=== PATIENT | female | born 1995 | race Caucasian/White ===

== ENCOUNTER 2016-12-26 20:56 | Emergency (ER) | payer OTHER ==
[~2016-12-26] VITALS: Ht 175.3 cm; Wt 110.0 kg
[~2016-12-26 20:56] MED LIST: CLC100 PO; HYDR-5688 PO; TRIA37.5 PO
[2016-12-26 20:58] VITALS: BP 130/82; PULSE 105; TEMP 36.9; O2SAT 98; Ht 175.3 cm; Wt 110.0 kg
[2016-12-26] MEDS ORDERED: PROCHLORPERAZINE 5 MG/ML 2 ML VIAL IM STA (21:12)
[2016-12-26] MEDS ORDERED: KETOROLAC TROMETHAMINE 60 MG/2 ML VIAL IM STA (21:12)
[2016-12-26] MEDS ORDERED: DEXAMETHASONE SOD INJ 10 MG/ML VIAL IM ONE (21:15)
--- NOTE | 2016-12-26 21:19 | EMERGENCY ROOM VISIT NOTE ---
History First contact with patient: 21:04 Chief Complaint: HEADACHE Stated Complaint: MIGRAINE X3 DAYS,NAUSEA,STIFF NECK History of Present Illness The patient is a 21 year old female who presents to the Emergency Room with complaints of a migraine headache for the past 3 days. The patient does have a history of chronic migraines, but reports that her migraine frequency has significantly dropped off over the past several years. She reports that her headaches are usually associated with menstruation, of which the patient reports that she is currently due. She describes her headache as a throbbing right temporal and retro-orbital discomfort with photophobia and phonophobia. Patient usually takes Motrin and extra strength Tylenol for her migraines, but was unable to control her migraine this time. She denies any recent head injury , fever, sinus congestion or other neurologic symptoms. This is typical for her migraine, and not the worse headache of her life. She rates her discomfort a 7 out of 10. Review of Systems 10 system review was performed and was negative except for pertinent positives and negatives as indicated in history of present illness Past Medical/Surgical History Medical Problems: (1) Adverse drug interaction (2) Dehydration (3) Headache (4) Hematuria (5) Hyperemesis (6) Migraine (7) Migraine (8) Migraine (9) Migraine headache (10) Migraine headache (11) Migraines (12) (13) Surgical Problems: (1) H/O wisdom tooth extraction (2) Family History Diabetes mellitus Heart disease Hypertension Kidney disease Seizures Social History Smoking Status: Never Smoker Alcohol Use: none Drug Use: none Marital Status: in relationship Housing Status: lives with family Occupation Status: student Current/Historical Medications Scheduled Docusate Sodium (Docusate Sodium), 100 MG PO BID Triamterene/Hctz (Dyazide 37.5MG/25MG), 1 TAB PO UD Scheduled PRN Hydrocodone/Acetaminophen 5MG/325MG ([place] 5MG/325MG), 1-2 TAB PO Q6H PRN for Pain Allergies Coded Allergies: Codeine (Unverified Adverse Reaction, Intermediate, vomiting, 12/26/16) during - has tolerated vicodin well Physical Exam Vital Signs Date Time Temp Pulse Resp B/P Pulse Ox O2 Delivery O2 Flow Rate FiO2 12/26/16 20:58 36.9 105 18 130/82 98 Room Air Physical Exam CONSTITUTIONAL: Healthy and well nourished. Alert and oriented X 3 with positive affect. HEENT: Normocephalic, atraumatic. Pupils equal, round and reactive. Patient is photophobic, precluding funduscopic exam. NECK: Full active range of motion without discomfort. No nuchal rigidity, JVD or carotid bruits. RESPIRATORY: Clear to auscultation bilaterally with no wheezing, crackles, rhonchi or stridor. CARDIOVASCULAR: Regular rate and rhythm with no murmurs, rubs or gallops. MUSCULOSKELETAL: Full range of motion of all joints without discomfort. INTEGUMENTARY: No rash or other significant dermatologic conditions noted. NEUROLOGIC: Cranial nerves II-XII grossly intact. No focal neurologic deficits noted. Normal finger to nose test. Negative pronator drift. No ataxia with gait. Medical Decision & Procedures ED Course Patient history and physical exam were performed. Nurse's notes were reviewed. Vital signs were reviewed and normal. I did review prior medical records, showing that the patient was last here in June 2015, at which time I evaluated the patient. The patient received IM Toradol, Compazine and Decadron with complete resolution of her headache. The patient requested similar treatment and immediate discharge home as her ride is currently waiting for her. She was therefore administered Toradol 60 mg, Compazine 10 mg and Decadron 10 mg IM. She was instructed to rest and remain well-hydrated. Follow -up with her family doctor as needed for further migraine management. Return to the emergency Department for uncontrollable pain or other concerning neurologic symptoms. The patient was happy with plan of care, voiced understanding of all discharge instructions, and rated her discomfort a 7 out of 10 at the time of discharge. Medical Decision Patient presents to the emergency department with complaint of a migraine headache that is similar to all prior migraines. It is not the worse headache of her life. Given her history and physical exam findings, I do not feel that further laboratory or imaging studies are warranted. I do not suspect meningitis, TIA/CVA, thromboembolic event, abscess, intracranial bleed or carbon monoxide poisoning. Impression Primary Impression: Migraine Departure Information Dispostion Home / Self-Care Referrals No Doctor, Assigned (PCP) Forms HOME CARE DOCUMENTATION FORM, IMPORTANT VISIT INFORMATION Patient Instructions My [facility] Not [facility] Additional Instructions Rest and remain well-hydrated. Follow-up with your family doctor as needed for further migraine management. Return to the emergency department for worsening symptoms. Problem Qualifiers Primary Impression: Migraine Migraine type: unspecified Status migrainosus presence: without status migrainosus Intractability: not intractable Qualified Codes: G43.909 - Migraine, unspecified, not intractable, without status migrainosus
[2016-12-26] MEDS ORDERED: PEDICHW53 PO (21:28)
== END 2016-12-26 21:46 | disposition home or self-care (01) ==
LOC: C.EDB 20:57 → C.EDD 21:46
DX: G43.909 Migraine, unspecified, not intractable, without status migrainosus (principal)

== ENCOUNTER 2017-09-03 14:25 | Emergency (ER) | payer OTHER ==
[~2017-09-03] VITALS: Ht 175.3 cm; Wt 108.0 kg
[~2017-09-03 14:25] MED LIST changes: -CLC100 PO; -HYDR-5688 PO; +PEDICHW53 PO; -TRIA37.5 PO
[2017-09-03 14:30] VITALS: TEMP 36.8; Ht 175.3 cm; Wt 108.0 kg
--- NOTE | 2017-09-03 14:59 | EMERGENCY ROOM VISIT NOTE ---
History Report prepared by Edyta: Lanie Santana Under the Supervision of: Dr. Vish Jameson M.D. First contact with patient: 14:36 Chief Complaint: VAGINAL BLEEDING Stated Complaint: 6 WK AND BLEEDING History of Present Illness The patient is a 21 year old female who presents to the Emergency Room with complaints of persistent vaginal bleeding that started this morning. The patient is 6 weeks . The patient states she was bleeding a lot and it progressed into clots. She states the bleeding has not improved since this morning. The patient denies any cramping or abdominal pain. She states she has been before and never experienced any vaginal bleeding. She notes her last menstrual cycle began on July 27. The patient states she did not receive Rhogam during her first . She notes she has an appointment to see an OBGYN September 19. The patient states she has not miscarried before. Source of History: patient Onset: this morning Position: other (vaginal bleeding) Timing: other (persistent) Associated Symptoms: No abdominal pain Note: Additional symptoms: The patient denies any cramping in her pelvic region. Review of Systems See HPI for pertinent positives & negatives. A total of 10 systems reviewed and were otherwise negative. Past Medical & Surgical Medical Problems: (1) Adverse drug interaction (2) Dehydration (3) Headache (4) Hematuria (5) Hyperemesis (6) Migraine (7) Migraine (8) Migraine (9) Migraine headache (10) Migraine headache (11) Migraines (12) (13) Surgical Problems: (1) H/O wisdom tooth extraction (2) Family History Diabetes mellitus Heart disease Hypertension Kidney disease Seizures Social History Smoking Status: Current Every Day Smoker Alcohol Use: none Drug Use: none Marital Status: in relationship Housing Status: lives with family Occupation Status: student Current/Historical Medications Scheduled Multivit/Min/Iron/Fol Ac/Pren ( Vitamin), 1 TAB PO DAILY Allergies Coded Allergies: Codeine (Unverified Adverse Reaction, Intermediate, vomiting, 09/03/17) during - has tolerated vicodin well Physical Exam Vital Signs Date Time Temp Pulse Resp B/P (MAP) Pulse Ox O2 Delivery O2 Flow Rate FiO2 09/03/17 16:46 90 18 139/98 100 09/03/17 14:30 36.8 90 18 139/98 100 Room Air Physical Exam GENERAL: Patient is in no acute distress. HEENT: No acute trauma, normocephalic atraumatic, mucous membranes moist, no nasal congestion, no scleral icterus. NECK: No stridor, no adenopathy, no meningismus, trachea is midline. LUNGS: Clear to auscultation bilaterally, no wheeze, no rhonchi, breath sounds equal. HEART: Without murmurs gallops or rubs, regular rate and rhythm. ABDOMEN: Soft, nontender, bowel sounds positive, no hernias, no peritonitis. EXTREMITIES: No cyanosis or edema, full range of motion of all the joints without pain or difficulty, no signs for acute trauma. NEUROLOGIC: Oriented x 3, no acute motor or sensory deficits, no focal weakness. SKIN: No rash, no jaundice, no diaphoresis. VAGINAL: Not performed. Medical Decision & Procedures ER Provider Diagnostic Interpretation: Radiology results as stated below per my review and radiologist interpretation: LIMITED (US) (transabdominal and endovaginal scanning) CLINICAL HISTORY: Vaginal bleeding COMPARISON STUDY: No previous studies for comparison. FINDINGS: The uterus measured 6.4 x 4.5 x 5.9 cm. Intrauterine gestational sac was visualized. The mean sac diameter was 8 mm. There is an equivocal 2 mm yolk sac. An embryonic pole was not yet delineated. The right ovary measured 39 x 23 x 39 mm. There is a complex 18 mm structure likely representing a corpus luteum. The left ovary measured 25 x 17 x 18 mm. There is minimal free fluid. IMPRESSION: 1. Early intrauterine gestational sac. The mean sac diameter was 8 mm. 2. An embryonic pole was not yet visualized 3. Follow-up ultrasonography is recommended to confirm a viable . Electronically signed by: Andrade Alfaro M.D. 09/03/2017 4:09 PM Dictated Date/Time: 09/03/2017 4:05 PM Laboratory Results 09/03/17 15:00 09/03/17 15:00 Test 09/03/17 14:55 09/03/17 15:00 Urine Color YELLOW Urine Appearance CLEAR (CLEAR) Urine pH 7.5 (4.5-7.5) Urine Specific Morrison 1.018 (1.000-1.030) Urine Protein NEG (NEG) Urine Glucose (UA) NEG (NEG) Urine Ketones TRACE (NEG) Urine Occult Blood 3+ (NEG) Urine Nitrite NEG (NEG) Urine Bilirubin NEG (NEG) Urine Urobilinogen NEG (NEG) Urine Leukocyte Esterase NEG (NEG) Urine WBC (Auto) 1-5 /hpf (0-5) Urine RBC (Auto) 10-30 /hpf (0-4) Urine Hyaline Casts (Auto) 1-5 /lpf (0-5) Urine Epithelial Cells (Auto) >30 /lpf (0-5) Urine Bacteria (Auto) NEG (NEG) Red Blood Count 5.21 M/uL (4.2-5.4) Mean Corpuscular Volume 76.8 fL (80-100) Mean Corpuscular Hemoglobin 26.1 pg (25-34) Mean Corpuscular Hemoglobin Concent 34.0 g/dl (32-36) RDW Standard Deviation 38.0 fL (36.4-46.3) RDW Coefficient of Variation 13.5 % (11.5-14.5) Mean Platelet Volume 10.3 fL (7.4-10.4) Prothrombin Time 10.7 SECONDS (9.0-12.0) Prothromb Time International Ratio 1.0 (0.9-1.1) Activated Partial Thromboplast Time 24.7 SECONDS (21.0-31.0) Partial Thromboplastin Ratio 1.0 Anion Gap 6.0 mmol/L (3-11) Est Creatinine Clear Calc Drug Dose 115.5 ml/min Estimated GFR () 92.6 Estimated GFR (Non- 79.9 BUN/Creatinine Ratio 6.3 (10-20) Calcium Level 9.0 mg/dl (8.5-10.1) Human Chorionic Gonadotropin, Quant 9199 mIU/mL Laboratory results reviewed by me. ED Course 1436: The patient was evaluated in room C1B. A complete history and physical exam was performed. 1623: Reevaluated the patient. Discussed results and discharge instructions: She verbalized understanding and agreement. The patient is ready for discharge. Medical Decision The patient is a 21 year old female who presents to the ED with complaints of vaginal bleeding. Differential diagnoses considered include miscarriage, bleeding during healthy , menstrual cycle, anemia, coagulopathy. There is no leukocytosis or concerning anemia. No significant electrolyte abnormality or kidney failure. There is no coagulopathy. Urinalysis shows some red cells consistent with her vaginal bleeding, no evidence for infection. Pelvic ultrasound shows a sac within the uterus consistent with . Beta quantitative value was around 9000, consistent with her dates of 5-6 weeks. The patient has had minimal vaginal bleeding while in the ED. I do not think we will gain anything from a pelvic exam. I will hold on this for now. The patient is being discharged to have a repeat beta quantitative in 2 days. Pelvic rest was encouraged. She will return here for severe pain, heavier bleeding or other concerns. She needs to follow with OB in 2 days. Medication Reconcilliation Current Medication List: was personally reviewed by me Blood Pressure Screening Patient's blood pressure: Elevated blood pressure Blood pressure disposition: Elevated BP felt to be situational Impression Primary Impression: Vaginal bleeding Additional Impression: Scribe Attestation The scribe's documentation has been prepared under my direction and personally reviewed by me in its entirety. I confirm that the note above accurately reflects all work, treatment, procedures, and medical decision making performed by me. Departure Information Dispostion Home / Self-Care Referrals No Doctor, Assigned (PCP) Patient Instructions My [facility] Additional Instructions pelvic rest, no sex or tampons no heavy lifting see ob in 2 days for a repeat beta quant report to the ER if travel director can not see you return to the ER for worsening bleeding or symptoms rest Problem Qualifiers
[2017-09-03 15:13] LABS: HEMOGLOBIN 13.6 g/dL (12.0-16.0); MEAN CELL VOLUME 76.8 fL (80-100); MEAN CORPUSCULAR HEMOGLOBIN 26.1 pg (25-34); MEAN PLATELET VOLUME 10.3 fL (7.4-10.4); PLATELET COUNT 273 K/uL (130-400); RED CELL DISTRIBUTION WIDTH CV 13.5 % (11.5-14.5); WHITE BLOOD COUNT 7.88 K/uL (4.8-10.8)
[2017-09-03 15:30] LABS: PTT PATIENT 24.7 SECONDS (21.0-31.0)
[2017-09-03 15:37] LABS: POTASSIUM 3.6 mmol/L (3.5-5.1)
--- NOTE | 2017-09-03 16:10 | DIAGNOSTIC IMAGING REPORT ---
LIMITED (US) (transabdominal and endovaginal scanning) CLINICAL HISTORY: Vaginal bleeding COMPARISON STUDY: No previous studies for comparison. FINDINGS: The uterus measured 6.4 x 4.5 x 5.9 cm. Intrauterine gestational sac was visualized. The mean sac diameter was 8 mm. There is an equivocal 2 mm yolk sac. An embryonic pole was not yet delineated. The right ovary measured 39 x 23 x 39 mm. There is a complex 18 mm structure likely representing a corpus luteum. The left ovary measured 25 x 17 x 18 mm. There is minimal free fluid. IMPRESSION: 1. Early intrauterine gestational sac. The mean sac diameter was 8 mm. 2. An embryonic pole was not yet visualized 3. Follow-up ultrasonography is recommended to confirm a viable . Electronically signed by: Andrade Alfaro M.D. 09/03/2017 4:09 PM Dictated Date/Time: 09/03/2017 4:05 PM
[2017-09-03] MEDS ORDERED: PRENTAB26 PO (16:23)
[2017-09-03 16:46] VITALS: BP 139/98; PULSE 90; O2SAT 100
== END 2017-09-03 16:47 | disposition home or self-care (01) ==
LOC: C.EDB 14:27 → C.EDC 16:47
DX: O20.8 Other hemorrhage in early pregnancy (principal); Z3A.01 Less than 8 weeks gestation of pregnancy; O99.351 Diseases of the nervous system complicating pregnancy, first trimester; G43.909 Migraine, unspecified, not intractable, without status migrainosus; O99.331 Smoking (tobacco) complicating pregnancy, first trimester; F17.200 Nicotine dependence, unspecified, uncomplicated; Z83.3 Family history of diabetes mellitus; Z82.49 Family history of ischemic heart disease and other diseases of the circulatory system; Z82.0 Family history of epilepsy and other diseases of the nervous system

== ENCOUNTER → 2017-09-05 | Outpatient (CLI) | payer OTHER ==
[~2017-09-05] MED LIST changes: -PEDICHW53 PO; +PRENTAB26 PO
== END | disposition home or self-care (01) ==
LOC: C.LAB1850 16:11
PROVIDERS: ATTEND Obstetrics & Gynecology
DX: O20.0 Threatened abortion (principal); Z3A.00 Weeks of gestation of pregnancy not specified

== ENCOUNTER 2017-09-13 15:00 | Emergency (ER) | payer OTHER ==
[~2017-09-13] VITALS: Ht 175.3 cm; Wt 107.5 kg
[2017-09-13 15:05] VITALS: TEMP 36.7; Ht 175.3 cm; Wt 107.5 kg
[2017-09-13] MEDS ORDERED: SODIUM CHLORIDE 0.9% 1000ML 1,000 ML IV STA (15:26)
[2017-09-13] MEDS ORDERED: PROMETHAZINE HCL INJ 25 MG in SODIUM CHLORIDE 0.9% 50ML 50 ML IV STA (15:26)
[2017-09-13 16:18] LABS: BASO % 0.2 %; BASO ABS # 0.02 K/uL (0-0.2); EOS ABS # 0.08 K/uL (0-0.5); HEMATOCRIT 38.9 % (37-47); HEMOGLOBIN 13.2 g/dL (12.0-16.0); IG# 0.01 K/uL (0.00-0.02); LYMPH % 14.7 %; LYMPH ABS # 1.23 K/uL (1.2-3.4); MEAN CELL VOLUME 75.7 fL (80-100); MEAN CORPUSCULAR HEMOGLOBIN 25.7 pg (25-34); MEAN CORPUSCULAR HGB CONC 33.9 g/dl (32-36); MEAN PLATELET VOLUME 10.4 fL (7.4-10.4); MONO % 6.4 %; MONO ABS # 0.53 K/uL (0.11-0.59); NEUT % 77.6 %; NEUT ABS # 6.47 K/uL (1.4-6.5); PLATELET COUNT 183 K/uL (130-400); RED CELL DISTRIBUTION WIDTH CV 13.1 % (11.5-14.5); RED CELL DISTRIBUTION WIDTH SD 36.1 fL (36.4-46.3); WHITE BLOOD COUNT 8.34 K/uL (4.8-10.8)
--- NOTE | 2017-09-13 16:23 | EMERGENCY ROOM VISIT NOTE ---
History First contact with patient: 15:12 Chief Complaint: DEHYDRATION Stated Complaint: 7WKS PREG, N/V/WEAK,HEADACHE DEHYDRATED Nursing Triage Summary: I am 7 weeks and I have throwing up all day. I am extremely nauseous and weak. I have a stabbing headache on the right side. History of Present Illness The patient is a 21 year old female who presents to the Emergency Room with complaints of nausea and vomiting. The patient is currently 7 weeks . She reports that she has had severe vomiting since this morning. She has tried to keep down popsicles and water but has been unable to keep anything down. She does report a right-sided headache and rates the overall discomfort a 10/ 10. She states that currently, she feels nauseous and weak. She thinks she may be dehydrated. She denies any diarrhea, fevers/chills, abdominal pain or vaginal bleeding. She was seen here about 10 days ago for vaginal bleeding. She reports that she has followed up with [facility] and they said that everything is progressing normally. She has an appointment with them next week. She called her TOE POUNDER who recommended that she lemon picker vitamin B6, but she has not had a chance to get the story at. She reports one previous which went to full-term. She reports severe nausea and vomiting throughout that entire . Review of Systems A complete 10 point review of systems was reviewed with the patient with pertinent positives and negatives as per history of present illness. All else were negative. Past Medical/Surgical History Medical Problems: (1) Adverse drug interaction (2) Appendicitis (3) Dehydration (4) Headache (5) Hematuria (6) Hyperemesis (7) Migraine (8) Migraine (9) Migraine (10) Migraine (11) Migraine headache (12) Migraine headache (13) Migraines (14) (15) (16) (17) Vaginal bleeding Surgical Problems: (1) H/O wisdom tooth extraction (2) Family History Diabetes mellitus Heart disease Hypertension Kidney disease Seizures Social History Smoking Status: Former Smoker Alcohol Use: none Drug Use: none Marital Status: in relationship Housing Status: lives with family Occupation Status: student Current/Historical Medications Scheduled Multivit/Min/Iron/Fol Ac/Pren ( Vitamin), 1 TAB PO DAILY Physical Exam Vital Signs Date Time Temp Pulse Resp B/P (MAP) Pulse Ox O2 Delivery O2 Flow Rate FiO2 125/18 18:56 78 16 108/66 97 09/13/17 16:54 90 22 101/75 99 Room Air 09/13/17 15:40 90 22 122/79 100 Room Air 09/13/17 15:05 36.7 78 22 121/85 100 Room Air Physical Exam VITALS: Vitals are noted on the nurse's note and reviewed by myself. Vital signs stable. GENERAL: This is a 21-year-old female, in no acute distress but uncomfortable appearing, well-developed well-nourished. EARS: External auditory canals clear, tympanic membranes pearly green without erythema or effusion bilaterally. EYES: Pupils equal round and reactive to light and accommodation. MOUTH: Mucous membranes moist. Tonsils are not enlarged. Pharynx without erythema or exudate. NECK: Supple without nuchal rigidity. No lymphadenopathy. HEART: Regular rate and rhythm without murmurs gallops or rubs. LUNGS: Clear to auscultation bilaterally without wheezes, rales or rhonchi. ABDOMEN: Positive bowel sounds x 4. Soft, nontender to palpation. NEURO: Patient was alert and oriented to person place and time. Medical Decision & Procedures Laboratory Results 09/13/17 16:02 Red Blood Count 5.14, Mean Corpuscular Volume 75.7, Mean Corpuscular Hemoglobin 25.7, Mean Corpuscular Hemoglobin Concent 33.9, Mean Platelet Volume 10.4, Neutrophils (%) (Auto) 77.6, Lymphocytes (%) (Auto) 14.7, Monocytes (%) (Auto) 6.4, Eosinophils (%) (Auto) 1.0, Basophils (%) (Auto) 0.2, Neutrophils # (Auto) 6.47, Lymphocytes # (Auto) 1.23, Monocytes # (Auto) 0.53, Eosinophils # (Auto) 0.08, Basophils # (Auto) 0.02 09/13/17 16:02 Test 09/13/17 16:02 White Blood Count 8.34 K/uL (4.8-10.8) Red Blood Count 5.14 M/uL (4.2-5.4) Hemoglobin 13.2 g/dL (12.0-16.0) Hematocrit 38.9 % (37-47) Mean Corpuscular Volume 75.7 fL (80-100) Mean Corpuscular Hemoglobin 25.7 pg (25-34) Mean Corpuscular Hemoglobin Concent 33.9 g/dl (32-36) Platelet Count 183 K/uL (130-400) Mean Platelet Volume 10.4 fL (7.4-10.4) Neutrophils (%) (Auto) 77.6 % Lymphocytes (%) (Auto) 14.7 % Monocytes (%) (Auto) 6.4 % Eosinophils (%) (Auto) 1.0 % Basophils (%) (Auto) 0.2 % Neutrophils # (Auto) 6.47 K/uL (1.4-6.5) Lymphocytes # (Auto) 1.23 K/uL (1.2-3.4) Monocytes # (Auto) 0.53 K/uL (0.11-0.59) Eosinophils # (Auto) 0.08 K/uL (0-0.5) Basophils # (Auto) 0.02 K/uL (0-0.2) RDW Standard Deviation 36.1 fL (36.4-46.3) RDW Coefficient of Variation 13.1 % (11.5-14.5) Immature Granulocyte % (Auto) 0.1 % Immature Granulocyte # (Auto) 0.01 K/uL (0.00-0.02) Anion Gap 7.0 mmol/L (3-11) Est Creatinine Clear Calc Drug Dose 144.1 ml/min Estimated GFR () 121.3 Estimated GFR (Non- 104.7 BUN/Creatinine Ratio 6.8 (10-20) Calcium Level 8.8 mg/dl (8.5-10.1) Total Bilirubin 0.6 mg/dl (0.2-1) Aspartate Amino Transf (AST/SGOT) 14 U/L (15-37) Alanine Aminotransferase (ALT/SGPT) 21 U/L (12-78) Alkaline Phosphatase 76 U/L (45-117) Total Protein 7.7 gm/dl (6.4-8.2) Albumin 3.6 gm/dl (3.4-5.0) Globulin 4.1 gm/dl (2.5-4.0) Albumin/Globulin Ratio 0.9 (0.9-2) Medications Administered Medications (Trade) Dose Ordered Sig/Mariela Route Start Time Stop Time Status Last Admin Dose Admin Sodium Chloride 1,000 ml @ 999 mls/hr Q1H1M STAT IV 09/13/17 15:26 09/13/17 16:26 DC 09/13/17 16:03 999 MLS/HR Promethazine HCl 25 mg/Sodium Chloride 51 ml @ 204 mls/hr NOW STAT IV 09/13/17 15:26 09/13/17 15:44 DC 09/13/17 16:02 204 MLS/HR ED Course The patient was evaluated as above. Labs were drawn and IV access was obtained. Patient was medicated with 1 L NSS and 25 mg Phenergan IV. Patient was reevaluated and [] []Discharge instructions were reviewed with the patient. The patient verbalized understanding of my assessment and treatment plan and was discharged home in good condition. Medical Decision Differential diagnosis includes hyperemesis gravidarum, electrolyte abnormality , cholecystitis, ectopic , appendicitis, gastroenteritis, among others. The patient is a 21-year-old female who presents today complaining of nausea/vomiting in early . Labs revealed no leukocytosis, anemia or concerning electrolyte abnormality. Potassium slightly low. Patient has a history of hyperemesis gravidarum. No vaginal bleeding or abdominal pain on exam. Patient was treated with IV Phenergan and 1 L normal saline solution and felt significantly better. She was able to tolerate oral fluids. She did speak with her TOE P[facility]ER, who recommended that she take doxylamine and pyridoxine. I recommended that she try this and follow-up with [facility] for further evaluation. The patient's case was reviewed with Dr. Dorsey, ED attending physician, who agreed with my assessment and treatment plan. Based on the patient's presentation and work up, I feel the patient is stable for outpatient treatment. The patient was educated to return to the emergency department for any worsening of their current condition or new/concerning symptoms. She will follow up with [facility]. Medication Reconcilliation Current Medication List: was personally reviewed by me Blood Pressure Screening Patient's blood pressure: Normal blood pressure Impression Primary Impression: Nausea/vomiting in Departure Information Dispostion Home / Self-Care Condition GOOD Referrals No Doctor, Assigned (PCP) Patient Instructions My [facility] Additional Instructions Rest and drink plenty of fluids. Try to take small sips of fluids frequently to stay hydrated. Tylenol as needed for any pain. Follow-up with your TOE P[facility]ER as scheduled. You should call and let them know that you were seen in the emergency department today. Try the Unisom (doxylamine) and vitamin B6 as your TOE POUNDER suggested. Return to the emergency department with any persistent vomiting, lightheadedness /passing out, abdominal pain, vaginal bleeding, or any other new/concerning symptoms.
[2017-09-13 16:39] LABS: ALBUMIN 3.6 gm/dl (3.4-5.0); CALCIUM 8.8 mg/dl (8.5-10.1); CREATININE 0.8 mg/dl (0.60-1.20); POTASSIUM 3.3 mmol/L (3.5-5.1)
[2017-09-13 16:42] LABS: TOTAL PROTEIN 7.7 gm/dl (6.4-8.2)
[2017-09-13 18:56] VITALS: BP 108/66; PULSE 78; O2SAT 97
== END 2017-09-13 18:58 | disposition home or self-care (01) ==
LOC: C.EDB 15:01 → C.EDC 18:58
DX: O21.9 Vomiting of pregnancy, unspecified (principal); Z3A.01 Less than 8 weeks gestation of pregnancy; G43.909 Migraine, unspecified, not intractable, without status migrainosus; Z87.891 Personal history of nicotine dependence; Z83.3 Family history of diabetes mellitus; Z82.49 Family history of ischemic heart disease and other diseases of the circulatory system; Z84.1 Family history of disorders of kidney and ureter; Z82.0 Family history of epilepsy and other diseases of the nervous system

== ENCOUNTER 2017-09-28 18:18 | Emergency (ER) | payer OTHER ==
[~2017-09-28] VITALS: Ht 170.2 cm; Wt 104.0 kg
[2017-09-28 18:36] VITALS: BP 131/83; TEMP 37; Ht 170.2 cm; Wt 104.0 kg
[2017-09-28] MEDS ORDERED: DiphenhydrAMINE HCL 50 MG/ML VIAL IV STA (19:50)
[2017-09-28] MEDS ORDERED: PROMETHAZINE HCL INJ 6.25 MG in SODIUM CHLORIDE 0.9% 50ML 50 ML IV STA (19:50)
[2017-09-28] MEDS ORDERED: ONDANSETRON INJ 2 MG/ML 2 ML VIAL IV STA (19:50)
[2017-09-28] MEDS ORDERED: SODIUM CHLORIDE 0.9% 1000ML 2,000 ML IV STA (19:50)
--- NOTE | 2017-09-28 19:56 | EMERGENCY ROOM VISIT NOTE ---
History Report prepared by Edyta: Dimas Bird Under the Supervision of: Dr. Vish Jameson M.D. First contact with patient: 19:45 Chief Complaint: VOMITING Stated Complaint: 10 WKS ;THROWING UP,WEAKNESS,MIGRAINE Nursing Triage Summary: 10 wks preg and can't stop vomitting and c/o dehydration no vag bleeding no dc c/o TEJADA and abd cramping she thinks is from vomitting states its not flu its related has been here for this before History of Present Illness The patient is a 22 year old female who presents to the Emergency Room with complaints of intermittent episodes of vomiting that began earlier this morning. She is currently 10 weeks and has been in the past. The patient states that she has experienced similar episodes of vomiting in the past associated with her previous . She received Phenergan at that time and notes that it helped her symptoms. She does not believe her symptoms to be congruent with the flu or other infectious etiologies. The patient has not been able to keep anything in her system today including water. She denies any fevers, chills, cough, chest pain, shortness of breath, diarrhea, or vaginal discharge. She is experiencing a headache with some abdominal cramping that she believes to secondary to her vomiting. She discussed her symptoms previously with her OBGYN and was given B6 and Unisom. However, these did not help her symptoms. Source of History: patient Onset: earlier this morning Position: other (GI) Symptom Intensity: Multiple episodes Quality: other (Vomiting) Timing: intermittent Associated Symptoms: + headache, + abdominal pain (cramping), No fevers, No chills, No cough, No chest pain, No SOB, No diarrhea Review of Systems See HPI for pertinent positives & negatives. A total of 10 systems reviewed and were otherwise negative. Past Medical & Surgical Medical Problems: (1) Adverse drug interaction (2) Appendicitis (3) Dehydration (4) Headache (5) Hematuria (6) Hyperemesis (7) Migraine (8) Migraine (9) Migraine (10) Migraine (11) Migraine headache (12) Migraine headache (13) Migraines (14) (15) (16) (17) Vaginal bleeding Surgical Problems: (1) H/O wisdom tooth extraction (2) Family History Diabetes mellitus Heart disease Hypertension Kidney disease Seizures Social History Smoking Status: Former Smoker Alcohol Use: none Drug Use: none Marital Status: in relationship Housing Status: lives with family Occupation Status: student Current/Historical Medications Scheduled Multivit/Min/Iron/Fol Ac/Pren ( Vitamin), 1 TAB PO DAILY Scheduled PRN Promethazine Hcl (Phenergan), 25 MG PO Q6H PRN for Nausea Allergies Coded Allergies: Codeine (Unverified Adverse Reaction, Intermediate, vomiting, 09/13/17) during - has tolerated vicodin well Physical Exam Vital Signs Date Time Temp Pulse Resp B/P (MAP) Pulse Ox O2 Delivery O2 Flow Rate FiO2 09/28/17 23:45 88 98 09/28/17 18:36 37.0 93 18 131/83 100 Room Air Physical Exam GENERAL: Patient is in no acute distress. HEENT: No acute trauma, normocephalic atraumatic, mucous membranes dry, no nasal congestion, no scleral icterus. NECK: No stridor, no adenopathy, no meningismus, trachea is midline. LUNGS: Clear to auscultation bilaterally, no wheeze, no rhonchi, breath sounds equal. HEART: There is a 2/6 systolic murmur present. Regular rhythm with a mildly tachycardic rate. ABDOMEN: Soft, nontender, bowel sounds positive, no hernias, no peritonitis. EXTREMITIES: No cyanosis or edema, full range of motion of all the joints without pain or difficulty, no signs for acute trauma. NEUROLOGIC: Oriented x 3, no acute motor or sensory deficits, no focal weakness. SKIN: No rash, no jaundice, no diaphoresis. Medical Decision & Procedures Laboratory Results 09/28/17 20:01 09/28/17 20:01 Test 09/28/17 20:01 09/28/17 22:45 Red Blood Count 5.21 M/uL (4.2-5.4) Mean Corpuscular Volume 75.8 fL (80-100) Mean Corpuscular Hemoglobin 26.3 pg (25-34) Mean Corpuscular Hemoglobin Concent 34.7 g/dl (32-36) RDW Standard Deviation 37.1 fL (36.4-46.3) RDW Coefficient of Variation 13.6 % (11.5-14.5) Mean Platelet Volume 10.7 fL (7.4-10.4) Anion Gap 8.0 mmol/L (3-11) Est Creatinine Clear Calc Drug Dose 142.8 ml/min Estimated GFR () 128.1 Estimated GFR (Non- 110.6 BUN/Creatinine Ratio 6.6 (10-20) Calcium Level 9.5 mg/dl (8.5-10.1) Urine Color YELLOW Urine Appearance CLEAR (CLEAR) Urine pH 7.0 (4.5-7.5) Urine Specific [place] 1.011 (1.000-1.030) Urine Protein NEG (NEG) Urine Glucose (UA) NEG (NEG) Urine Ketones 2+ (NEG) Urine Occult Blood NEG (NEG) Urine Nitrite NEG (NEG) Urine Bilirubin NEG (NEG) Urine Urobilinogen NEG (NEG) Urine Leukocyte Esterase NEG (NEG) Laboratory results reviewed by me. Medications Administered Medications (Trade) Dose Ordered Sig/Mariela Route Start Time Stop Time Status Last Admin Dose Admin Sodium Chloride 2,000 ml @ 999 mls/hr Q2H1M STAT IV 09/28/17 19:50 09/28/17 21:50 DC 09/28/17 19:50 999 MLS/HR Promethazine HCl 6.25 mg/Sodium Chloride 50.25 ml @ 204 mls/hr NOW STAT IV 09/28/17 19:50 09/28/17 20:04 DC 09/28/17 19:50 204 MLS/HR Diphenhydramine HCl (Benadryl Inj) 25 mg NOW STAT IV 09/28/17 19:50 09/28/17 19:52 DC 09/28/17 20:05 25 MG Ondansetron HCl (Zofran Inj) 4 mg NOW STAT IV 09/28/17 19:50 09/28/17 19:52 DC 09/28/17 20:05 4 MG ED Course 1944: The patient was evaluated in room A11A. A complete history and physical exam was performed. 1949: Ordered Zofran Inj 4 mg IV, Benadryl Inj 25 mg IV, Promethazine HCl 6.25 mg/Sodium Chloride 50.25 ml @ 204 mls/hr IV, Sodium Chloride 2000 ml @ 999 mls/ hr IV 0: Upon reevaluation, the patient is doing well and is feeling better. She is no longer vomiting. She is giving us a urine sample now. 2345: Reevaluated the patient. Discussed results and discharge instructions: She verbalized understanding and agreement. The patient is ready for discharge. Medical Decision Differential diagnosis includes but is not limited to , dehydration, electrolyte imbalance, UTI, viral illness, food borne illness, and vomiting secondary to . There is a very mild leukocytosis, this is likely consistent with her itself. No concerning anemia. No significant electrolyte abnormality, no kidney failure. Urinalysis shows some dehydration, no infection. On exam, the patient was not febrile, there was no evidence for peritonitis. The patient received IV saline, IV Benadryl, IV Zofran and IV Phenergan. She feels markedly improved. The patient is being discharged on Phenergan, she has used this in the past with previous pregnancies. Hydration was encouraged as was OB follow-up. The vomiting is likely secondary to the itself. Medication Reconcilliation Current Medication List: was personally reviewed by me Blood Pressure Screening Patient's blood pressure: Elevated blood pressure Blood pressure disposition: Elevated BP felt to be situational Impression Primary Impression: Vomiting Additional Impressions: Dehydration Scribe Attestation The scribe's documentation has been prepared under my direction and personally reviewed by me in its entirety. I confirm that the note above accurately reflects all work, treatment, procedures, and medical decision making performed by me. Departure Information Dispostion Home / Self-Care Prescriptions Promethazine Hcl (Phenergan) 25 Mg Tab 25 MG PO Q6H Y for Nausea, #15 TAB Prov: Vish Jameson M.D. 09/28/17 Referrals Merly Coelho MD Forms HOME CARE DOCUMENTATION FORM, IMPORTANT VISIT INFORMATION Patient Instructions My [facility] Additional Instructions bland diet---crackers, soup, toast, gatorade phenergan 1 tab every 6 hours as needed for nausea return if worsening follow with ob as an outpt lab testing was all ok today Problem Qualifiers
[2017-09-28] MEDS ORDERED: PROMETHAZINE HCL INJ 50 MG/ML 1 ML VIAL/AMP IM ONE (20:03)
[2017-09-28 20:32] LABS: HEMATOCRIT 39.5 % (37-47); HEMOGLOBIN 13.7 g/dL (12.0-16.0); MEAN CELL VOLUME 75.8 fL (80-100); MEAN CORPUSCULAR HEMOGLOBIN 26.3 pg (25-34); MEAN CORPUSCULAR HGB CONC 34.7 g/dl (32-36); MEAN PLATELET VOLUME 10.7 fL (7.4-10.4); PLATELET COUNT 302 K/uL (130-400); RED CELL DISTRIBUTION WIDTH CV 13.6 % (11.5-14.5); RED CELL DISTRIBUTION WIDTH SD 37.1 fL (36.4-46.3); WHITE BLOOD COUNT 10.95 K/uL (4.8-10.8)
[2017-09-28 20:49] LABS: CALCIUM 9.5 mg/dl (8.5-10.1); CREATININE 0.76 mg/dl (0.60-1.20); POTASSIUM 3.6 mmol/L (3.5-5.1)
[2017-09-28] MEDS ORDERED: PROM25TA9 PO (23:40)
[2017-09-28 23:45] VITALS: PULSE 88; O2SAT 98
== END 2017-09-28 23:45 | disposition home or self-care (01) ==
LOC: C.EDB 18:22 → C.EDA 23:45
DX: R11.10 Vomiting, unspecified (principal); E86.0 Dehydration; Z83.3 Family history of diabetes mellitus; Z82.49 Family history of ischemic heart disease and other diseases of the circulatory system; Z82.0 Family history of epilepsy and other diseases of the nervous system; Z87.891 Personal history of nicotine dependence

== ENCOUNTER 2017-10-04 15:03 | Emergency (ER) | payer OTHER ==
[~2017-10-04] VITALS: Ht 170.2 cm; Wt 102.6 kg
[~2017-10-04 15:03] MED LIST changes: -DOXY25TA8 PO; -PROM25TA16 PO; -PYRI100T2 PO
[2017-10-04 15:12] VITALS: TEMP 37; Ht 170.2 cm; Wt 102.6 kg
[2017-10-04] MEDS ORDERED: ONDANSETRON INJ 2 MG/ML 2 ML VIAL IV STA (17:28)
[2017-10-04] MEDS ORDERED: SODIUM CHLORIDE 0.9% 1000ML 1,000 ML IV STA (17:28)
[2017-10-04] MEDS ORDERED: PROMETHAZINE HCL INJ 25 MG in SODIUM CHLORIDE 0.9% 50ML 50 ML IV STA (17:30)
--- NOTE | 2017-10-04 17:32 | EMERGENCY ROOM VISIT NOTE ---
History Report prepared by Edyta: Sudhir Medina Under the Supervision of: Dr. Inocente Reyes D.O. First contact with patient: 17:24 Chief Complaint: DEHYDRATION Stated Complaint: 10 WKS , DEHYDRATED, SEVERE NTV, FLU + Nursing Triage Summary: Patient ambulatory to triage with an upright and steady gait, states "I have influenza B. I was at an OB appointment and they sent me here for dehydration. I can't keep anything down. I haven't eaten in two days. I am 10 weeks ." Patient reports symptoms x 4 days. Patient reports generalized pain. History of Present Illness The patient is a 22 year old female who is 10-weeks who presents to the Emergency Room with complaints of worsening flu-like symptoms that started yesterday. She says that she was here a few times with similar symptoms, and was diagnosed with Influenza B yesterday at [facility]. The patient states that she felt better after leaving here, but her symptoms came back yesterday. She says that she cannot eat or drink, and has terrible vomiting. The patient adds that she has been having generalized pain. She says that this is her second . The patient states that she had a similar illness during her first . She denies any abdominal pain, fevers, rashes, or leg swelling. The patient states that her [facility] recommended she be evaluated here today for dehydration. She notes that her son has Influenza as well. Source of History: patient Onset: Yesterday Position: other (global - flu-like symptoms) Quality: other (has influenza B) Timing: worsening Associated Symptoms: + nausea, + vomiting, No fevers, No abdominal pain, No rash Note: Generalized pain. Denies leg swelling. Review of Systems See HPI for pertinent positives & negatives. A total of 10 systems reviewed and were otherwise negative. Past Medical & Surgical Medical Problems: (1) Adverse drug interaction (2) Appendicitis (3) Dehydration (4) Headache (5) Hematuria (6) Hyperemesis (7) Migraine (8) Migraine (9) Migraine (10) Migraine (11) Migraine headache (12) Migraine headache (13) Migraines (14) (15) (16) (17) Vaginal bleeding Surgical Problems: (1) H/O wisdom tooth extraction (2) Family History Diabetes mellitus Heart disease Hypertension Kidney disease Seizures Social History Smoking Status: Never Smoker Alcohol Use: none Drug Use: none Marital Status: in relationship Housing Status: lives with family Occupation Status: student Current/Historical Medications Scheduled Doxylamine Succinate (Sleep) (Unisom), 2 MG PO HS Multivit/Min/Iron/Fol Ac/Pren ( Vitamin), 1 TAB PO HS Pyridoxine Hcl (Vitamin B6), 100 MG PO HS Scheduled PRN Promethazine HCl (Promethazine HCl), 25 MG PO Q6H PRN for Nausea or Vomiting Allergies Coded Allergies: Codeine (Unverified Adverse Reaction, Intermediate, vomiting, 10/04/17) during - has tolerated vicodin well Physical Exam Vital Signs Date Time Temp Pulse Resp B/P (MAP) Pulse Ox O2 Delivery O2 Flow Rate FiO2 10/04/17 20:20 86 20 98 10/04/17 20:05 102 15 100 10/04/17 20:01 118/78 10/04/17 19:50 83 23 100 10/04/17 19:45 121/85 10/04/17 19:35 82 27 10/04/17 19:30 85 17 10/04/17 19:15 89 19 10/04/17 19:00 94 19 10/04/17 18:45 86 21 10/04/17 18:14 88 10/04/17 18:06 95 20 128/89 99 Room Air 10/04/17 15:12 37.0 109 20 135/88 98 Room Air Physical Exam GENERAL: Patient is awake, alert, mildly anxious appearing but comfortable. EYES: The conjunctivae are clear. The pupils are round and reactive. EARS, NOSE, MOUTH AND THROAT: The nose is without any evidence of any deformity. Mucous membranes are dry, tongue is midline NECK: The neck is nontender and supple. RESPIRATORY: Normal respiratory effort is noted there is no evidence of wheezing rhonchi or rales CARDIOVASCULAR: Regular rate and rhythm noted there no murmurs rubs or gallops normal S1 normal S2 GASTROINTESTINAL: The abdomen is soft. Bowel sounds are present in all quadrants. Abdomen is nontender MUSCULOSKELETAL/EXTREMITIES: There is no evidence of gross deformity full range of motion is noted in the hips and shoulders SKIN: There is no obvious evidence of any rash. There are no petechiae, pallor or cyanosis noted. NEUROLOGIC: Patient is awake alert and oriented x3 strength is symmetric patellar reflexes are 2+ bilaterally Medical Decision & Procedures Laboratory Results 10/04/17 17:40 Red Blood Count 4.81, Mean Corpuscular Volume 75.3, Mean Corpuscular Hemoglobin 25.8, Mean Corpuscular Hemoglobin Concent 34.3, Mean Platelet Volume 10.5, Neutrophils (%) (Auto) 70.1, Lymphocytes (%) (Auto) 15.7, Monocytes (%) (Auto) 13.6, Eosinophils (%) (Auto) 0.4, Basophils (%) (Auto) 0.2, Neutrophils # (Auto ) 3.62, Lymphocytes # (Auto) 0.81, Monocytes # (Auto) 0.70, Eosinophils # (Auto ) 0.02, Basophils # (Auto) 0.01 10/04/17 17:40 Test 10/04/17 17:40 10/04/17 19:45 White Blood Count 5.16 K/uL (4.8-10.8) Red Blood Count 4.81 M/uL (4.2-5.4) Hemoglobin 12.4 g/dL (12.0-16.0) Hematocrit 36.2 % (37-47) Mean Corpuscular Volume 75.3 fL (80-100) Mean Corpuscular Hemoglobin 25.8 pg (25-34) Mean Corpuscular Hemoglobin Concent 34.3 g/dl (32-36) Platelet Count 203 K/uL (130-400) Mean Platelet Volume 10.5 fL (7.4-10.4) Neutrophils (%) (Auto) 70.1 % Lymphocytes (%) (Auto) 15.7 % Monocytes (%) (Auto) 13.6 % Eosinophils (%) (Auto) 0.4 % Basophils (%) (Auto) 0.2 % Neutrophils # (Auto) 3.62 K/uL (1.4-6.5) Lymphocytes # (Auto) 0.81 K/uL (1.2-3.4) Monocytes # (Auto) 0.70 K/uL (0.11-0.59) Eosinophils # (Auto) 0.02 K/uL (0-0.5) Basophils # (Auto) 0.01 K/uL (0-0.2) RDW Standard Deviation 37.2 fL (36.4-46.3) RDW Coefficient of Variation 13.6 % (11.5-14.5) Immature Granulocyte % (Auto) 0.0 % Immature Granulocyte # (Auto) 0.00 K/uL (0.00-0.02) Anion Gap 9.0 mmol/L (3-11) Est Creatinine Clear Calc Drug Dose 158.5 ml/min Estimated GFR () 142.9 Estimated GFR (Non- 123.3 BUN/Creatinine Ratio 5.5 (10-20) Calcium Level 9.2 mg/dl (8.5-10.1) Total Bilirubin 0.3 mg/dl (0.2-1) Direct Bilirubin 0.1 mg/dl (0-0.2) Aspartate Amino Transf (AST/SGOT) 17 U/L (15-37) Alanine Aminotransferase (ALT/SGPT) 24 U/L (12-78) Alkaline Phosphatase 61 U/L (45-117) Total Protein 7.6 gm/dl (6.4-8.2) Albumin 3.5 gm/dl (3.4-5.0) Lipase 62 U/L (73-393) Urine Color YELLOW Urine Appearance CLEAR (CLEAR) Urine pH 6.5 (4.5-7.5) Urine Specific [place] 1.008 (1.000-1.030) Urine Protein NEG (NEG) Urine Glucose (UA) NEG (NEG) Urine Ketones 3+ (NEG) Urine Occult Blood NEG (NEG) Urine Nitrite NEG (NEG) Urine Bilirubin NEG (NEG) Urine Urobilinogen NEG (NEG) Urine Leukocyte Esterase NEG (NEG) Laboratory results per my review. Medications Administered Medications (Trade) Dose Ordered Sig/Mariela Route Start Time Stop Time Status Last Admin Dose Admin Sodium Chloride 1,000 ml @ 999 mls/hr Q1H1M STAT IV 10/04/17 17:28 10/04/17 18:28 DC 10/04/17 18:08 999 MLS/HR Ondansetron HCl (Zofran Inj) 4 mg NOW STAT IV 10/04/17 17:28 10/04/17 17:29 DC 10/04/17 18:07 4 MG Promethazine HCl 25 mg/Sodium Chloride 51 ml @ 204 mls/hr NOW STAT IV 10/04/17 17:30 10/04/17 17:44 DC 10/04/17 18:07 204 MLS/HR Ondansetron HCl (ZOFRAN ODT 4MG Home Pack) 1 homepack UD ONCE PO 10/04/17 20:15 10/04/17 20:16 DC 10/04/17 20:26 1 HOMEPACK Oxycodone HCl (Roxicodone Immediate Rel 5MG Home Pack) 1 homepack UD ONCE PO 10/04/17 20:15 10/04/17 20:16 DC 10/04/17 20:26 1 HOMEPACK ED Course 1725: The patient was evaluated in room C12B. A complete history and physical examination were performed. 1728: Ordered Zofran Inj 4 mg IV, NSS 1000 ml @ 999 mls/hr IV. 1729: Ordered Promethazine HCl 25 mg/Sodium Chloride 51 ml @ 204 mls/hr IV. 2009: Upon reevaluation, the patient is resting comfortably. I discussed the results and treatment plan with her. She verbalized agreement of the treatment plan. She was discharged home. 2014: Ordered Roxicodone Immediate Rel 5MG Home Pack 1 homepack PO, Zofran ODT 4MG Home Pack 1 homepack PO. Medical Decision Differential diagnosis: Etiologies such as gastroenteritis, food borne illness, infections, appendicitis , diverticulitis, inflammatory bowel disease, obstruction, GI bleed, biliary pathology, as well as others were entertained. The patient is a 22-year-old female who has a history of nausea vomiting associated with . The patient has been seeing her facility for similar complaints recently. The patient was treated with IV fluids and IV antiemetics. She was reevaluated multiple times. I discussed patient's laboratory results with her. She was feeling much better. She was encouraged to continue all medications as prescribed and follow-up with her primary [facility] physician as well as her primary care physician. Otherwise she was encouraged to return the emergency department immediately if symptoms change worsening the need arises what every is a smoker and his cardiac history he is taking his Microlipid is no tomorrow no refill little bit better this he has got a normal troponin normally she takes nothing on the day Medication Reconcilliation Current Medication List: was personally reviewed by me Blood Pressure Screening Patient's blood pressure: Elevated blood pressure Blood pressure disposition: Elevated BP felt to be situational Impression Primary Impression: Nausea & vomiting Additional Impression: Dehydration Scribe Attestation The scribe's documentation has been prepared under my direction and personally reviewed by me in its entirety. I confirm that the note above accurately reflects all work, treatment, procedures, and medical decision making performed by me. Departure Information Dispostion Home / Self-Care Referrals Merly Coelho MD (PCP) Forms HOME CARE DOCUMENTATION FORM, IMPORTANT VISIT INFORMATION, WORK / SCHOOL INSTRUCTIONS, Work Instructions Patient Instructions Dehydration, My [facility] Additional Instructions Call your primary care physician as well as her primary [facility] physician in the morning to schedule a follow-up appointment. Continue all medications as prescribed. Continue to drink plenty of liquids including Pedialyte and Gatorade. Return to the emergency department if symptoms change worsening the need arises. Problem Qualifiers
[2017-10-04 17:54] LABS: BASO % 0.2 %; BASO ABS # 0.01 K/uL (0-0.2); EOS % 0.4 %; EOS ABS # 0.02 K/uL (0-0.5); HEMATOCRIT 36.2 % (37-47); HEMOGLOBIN 12.4 g/dL (12.0-16.0); LYMPH % 15.7 %; LYMPH ABS # 0.81 K/uL (1.2-3.4); MEAN CELL VOLUME 75.3 fL (80-100); MEAN CORPUSCULAR HEMOGLOBIN 25.8 pg (25-34); MEAN CORPUSCULAR HGB CONC 34.3 g/dl (32-36); MEAN PLATELET VOLUME 10.5 fL (7.4-10.4); MONO % 13.6 %; NEUT % 70.1 %; NEUT ABS # 3.62 K/uL (1.4-6.5); PLATELET COUNT 203 K/uL (130-400); RED CELL DISTRIBUTION WIDTH CV 13.6 % (11.5-14.5); RED CELL DISTRIBUTION WIDTH SD 37.2 fL (36.4-46.3); WHITE BLOOD COUNT 5.16 K/uL (4.8-10.8)
[2017-10-04] MEDS ORDERED: DOXY25TA8 PO (18:07)
[2017-10-04] MEDS ORDERED: PROM25TA16 PO (18:07)
[2017-10-04] MEDS ORDERED: PYRI100T2 PO (18:07)
[2017-10-04 18:10] LABS: ALBUMIN 3.5 gm/dl (3.4-5.0); CALCIUM 9.2 mg/dl (8.5-10.1); CREATININE 0.68 mg/dl (0.60-1.20); POTASSIUM 3.6 mmol/L (3.5-5.1)
[2017-10-04 18:13] LABS: TOTAL PROTEIN 7.6 gm/dl (6.4-8.2)
[2017-10-04 20:01] VITALS: BP 118/78
[2017-10-04] MEDS ORDERED: ONDANSETRON HOME PACK 4MG OD TAB PO ONE (20:15)
[2017-10-04] MEDS ORDERED: OXYCODONE IR HOME PACK PO ONE (20:15)
[2017-10-04 20:20] VITALS: PULSE 86; O2SAT 98
== END 2017-10-04 20:27 | disposition home or self-care (01) ==
LOC: C.EDB 15:05 → C.EDC 20:27
DX: O21.9 Vomiting of pregnancy, unspecified (principal); O99.281 Endocrine, nutritional and metabolic diseases complicating pregnancy, first trimester; E86.0 Dehydration; Z3A.10 10 weeks gestation of pregnancy; O99.351 Diseases of the nervous system complicating pregnancy, first trimester; G43.909 Migraine, unspecified, not intractable, without status migrainosus; Z83.3 Family history of diabetes mellitus; Z82.49 Family history of ischemic heart disease and other diseases of the circulatory system; Z84.1 Family history of disorders of kidney and ureter; Z88.5 Allergy status to narcotic agent

== ENCOUNTER → 2017-10-04 | Outpatient (CLI) | payer OTHER ==
[~2017-10-04] MED LIST changes: +DOXY25TA8 PO; +PROM25TA16 PO; +PROM25TA9 PO; +PYRI100T2 PO
== END | disposition home or self-care (01) ==
LOC: C.PAPS 09:10
PROVIDERS: ATTEND Obstetrics & Gynecology
DX: Z34.81 Encounter for supervision of other normal pregnancy, first trimester (principal)

== ENCOUNTER → 2017-10-04 | Outpatient (CLI) | payer OTHER ==
[2017-10-04 15:47] LABS: BASO % 0.2 %; BASO ABS # 0.01 K/uL (0-0.2); EOS % 0.4 %; EOS ABS # 0.02 K/uL (0-0.5); HEMATOCRIT 36.4 % (37-47); HEMOGLOBIN 12.5 g/dL (12.0-16.0); IG# 0.01 K/uL (0.00-0.02); LYMPH % 14.9 %; LYMPH ABS # 0.78 K/uL (1.2-3.4); MEAN CELL VOLUME 75.1 fL (80-100); MEAN CORPUSCULAR HEMOGLOBIN 25.8 pg (25-34); MEAN CORPUSCULAR HGB CONC 34.3 g/dl (32-36); MEAN PLATELET VOLUME 10.9 fL (7.4-10.4); MONO ABS # 0.68 K/uL (0.11-0.59); NEUT % 71.3 %; NEUT ABS # 3.72 K/uL (1.4-6.5); PLATELET COUNT 219 K/uL (130-400); RED CELL DISTRIBUTION WIDTH CV 13.6 % (11.5-14.5); RED CELL DISTRIBUTION WIDTH SD 37.1 fL (36.4-46.3); WHITE BLOOD COUNT 5.22 K/uL (4.8-10.8)
== END | disposition home or self-care (01) ==
LOC: C.LAB1850 14:45
PROVIDERS: ATTEND Obstetrics & Gynecology
DX: Z34.81 Encounter for supervision of other normal pregnancy, first trimester (principal); E03.8 Other specified hypothyroidism

== ENCOUNTER → 2017-10-31 | Outpatient (CLI) | payer OTHER ==
[~2017-10-31] MED LIST changes: +DOXY25TA8 PO; +PROM25TA16 PO; -PROM25TA9 PO; +PYRI100T2 PO
[2017-10-31 17:14] LABS: ALBUMIN 3.5 gm/dl (3.4-5.0); ALT/SGPT 21 U/L (12-78); BLOOD UREA NITROGEN 4 mg/dl (7-18); CALCIUM 8.7 mg/dl (8.5-10.1); CARBON DIOXIDE 25 mmol/L (21-32); GLUCOSE 90 mg/dl (70-99); POTASSIUM 3.3 mmol/L (3.5-5.1); SODIUM 134 mmol/L (136-145)
[2017-10-31 17:24] LABS: ALKALINE PHOSPHATASE 63 U/L (45-117); AST/SGOT 13 U/L (15-37); TOTAL PROTEIN 7.7 gm/dl (6.4-8.2)
== END | disposition home or self-care (01) ==
LOC: C.LAB1850 15:50
PROVIDERS: ATTEND Obstetrics & Gynecology
DX: E03.8 Other specified hypothyroidism (principal); Z87.59 Personal history of other complications of pregnancy, childbirth and the puerperium

== ENCOUNTER → 2017-11-01 | Outpatient (CLI) | payer OTHER ==
--- NOTE | 2017-11-01 13:58 | DIAGNOSTIC IMAGING REPORT ---
SOFT TISS HEAD/NECK-THYROID HISTORY: Thyroid nodule E04.1 Solitary thyroid nodule COMPARISON: None. FINDINGS: Right lobe: 4.9 cm maximum dimension. Hypoechoic nodules measuring 8 and 4 mm respectively involving the upper pole. Left lobe: Maximum dimension 4.1 cm. No significant nodularity. IMPRESSION: Small right lobe thyroid nodules measuring 8 and 4 mm respectively. Otherwise negative study. The above report was generated using voice recognition software. It may contain grammatical, syntax or spelling errors. Electronically signed by: Keo Whitmore M.D. 11/01/2017 1:57 PM Dictated Date/Time: 11/01/2017 1:54 PM
== END | disposition home or self-care (01) ==
LOC: C.ULTRBC 12:34
PROVIDERS: ATTEND Internal Medicine Endocrinology, Diabetes & Metabolism
DX: E04.1 Nontoxic single thyroid nodule (principal); E03.8 Other specified hypothyroidism; R94.6 Abnormal results of thyroid function studies

== ENCOUNTER → 2017-11-05 | Outpatient (CLI) | payer OTHER | END | disposition home or self-care (01) | LOC: C.LAB1850 16:43 | PROVIDERS: ATTEND Obstetrics & Gynecology | DX: Z87.59 Personal history of other complications of pregnancy, childbirth and the puerperium (principal) ==

== ENCOUNTER → 2017-11-15 | Outpatient (CLI) | payer OTHER ==
[2017-11-19 18:28] LABS: TSI <89 % baseline (<140)
== END | disposition home or self-care (01) ==
LOC: C.LAB1850 11:46
PROVIDERS: ATTEND Internal Medicine Endocrinology, Diabetes & Metabolism
DX: E03.8 Other specified hypothyroidism (principal); E04.9 Nontoxic goiter, unspecified; R94.6 Abnormal results of thyroid function studies

== ENCOUNTER → 2017-11-19 | Outpatient (CLI) | payer OTHER | END | disposition home or self-care (01) | LOC: C.LAB1850 15:46 | PROVIDERS: ATTEND Obstetrics & Gynecology | DX: Z34.82 Encounter for supervision of other normal pregnancy, second trimester (principal) ==

== ENCOUNTER → 2018-04-09 | Outpatient (CLI) | payer OTHER | END | disposition home or self-care (01) | LOC: C.LABSPEC 16:09 | PROVIDERS: ATTEND Obstetrics & Gynecology | DX: Z34.83 Encounter for supervision of other normal pregnancy, third trimester (principal); Z3A.00 Weeks of gestation of pregnancy not specified ==

== ENCOUNTER 2019-07-11 08:21 | Inpatient (IN) ==
[2019-07-11] MEDS ORDERED: OXYTOCIN 30 UNITS/500 ML BAG IV PRN ×3 (08:31→16:06)
[2019-07-11 09:03] LABS: Hematocrit (blood only) 35.1 % (37-47); Hemoglobin 11.8 g/dL (12.0-16.0); Mean Corpuscular Hemoglobin 25.6 pg (25-34); Mean Corpuscular Volume 76.1 fL (80-100); Mean Platelet Volume 10.4 fL (7.4-10.4); Platelet Count 231 K/uL (130-400); RDW Coefficient of Variation 18.4 % (11.5-14.5); RDW Standard Deviation 50.7 fL (36.4-46.3); Red Blood Count 4.61 M/uL (4.2-5.4); White Blood Count 10.35 K/uL (4.8-10.8)
[2019-07-11 09:16] LABS: Mean Corpuscular Hgb Conc 33.6 g/dL (32-36)
--- NOTE | 2019-07-11 09:23 | History & Physical Report ---
Date of Service July 11, 2019 Assessment & Plan (1) Elective induction of labor planned: -IUP at 39w 1d here for elective induction of labor for social reasons, currently with irregular contractions -plan AROM, pitocin drip -she desires epidural placement -anticipate vaginal delivery (2) History of hypertension: -BP currently normotensive at 124/83 l-ow threshold for starting labetalol if BP spikes -Patient requests to be started on labetalol after delivery as a prevention for recurrent post- HTN -we have discussed the risk of masking the development of pre-eclampsia by initiating labetalol in a normotensive patient with Lena - we will continue to monitor BPs and further discuss starting labetalol following delivery History of Present Illness Primary Care Provider: NO PCP Lena is a 23 yo at 39w 1d dated via LMP here for elective induction of labor. RHEA is 07/17/19. Lena elected to be induced prior to due date for several social reasons: she has a history of rapid labor (she went into spontaneous labor with her second baby and delivered within 4 hours); she lives 1 hour away from hospital, due date is on and there were concerns for adequate unit staffing. + movements, - fluid loss, - vaginal bleeding, +untimeable contractions. Course: She is GBS -, A+, Rubella Immune. In addition to her PNV, she has taken a daily baby ASA since ~20 weeks. Lena has a history of post- hypertension with each of her previous two pregnancies. Of note, she has no history of underlying HTN or gestational HTN. After her most recent delivery in 04/2018 she went to the [facility] ED for chest pain, at which time she recorded a BP of 204/124; she had no lab evidence of pre-eclampsia/HELLP syndrome at this time, as urine protein, liver enzymes and platelet levels were all WNL. She was treated with labetalol, which was discontinued by her PCP after 2 months when her pressures normalized. She then saw a quality supervisor in the [place] area who reportedly felt post- cardiomyopathy was unlikely. Considering her issues in the past with blood pressure after delivery, the quality supervisor recommended she be started on labetalol in the post- period for prevention of recurrent post- hypertension. is also complicated by a short interval. Allergies Allergy/AdvReac Type Severity Reaction Status Date / Time codeine AdvReac Intermediate vomiting Verified 07/04/19 14:54 Home Medications Home Medications Medication Instructions Recorded Confirmed Type PNV cmb#95-ferrous fumarate-FA 1 tab PO DAILY 01/28/19 07/11/19 History [] aspirin 81 mg PO DAILY 02/25/19 07/11/19 History diphenhydramine HCl [Unisom 25 mg PO HS 02/25/19 07/11/19 History SleepMelts] pyridoxine (vitamin B6) [Vitamin 100 mg PO DAILY 02/25/19 07/11/19 History B-6] bupropion HCl 100 mg tablet,12 hr 100 mg PO BID 04/24/19 07/11/19 History sustained-release ferrous sulfate [Iron (ferrous 325 mg PO DAILY 07/11/19 07/11/19 History sulfate)] Patient History Medical History Anemia (Acute) Chest pain DVT prophylaxis Edema during in third trimester Elevated blood pressure affecting in second trimester, antepartum Enlarged thyroid Hematuria Migraine (Acute) Multiple thyroid nodules Normal vaginal delivery Persistent headaches induced hypertension With 1st , not 2nd with 27 completed weeks gestation Screening, , for anatomic survey Short interval between pregnancies affecting , antepartum Solitary thyroid nodule Thyroid nodule TSH (thyroid-stimulating hormone deficiency) Vaginal delivery Surgical History H/O wisdom tooth extraction History of appendectomy Family History Grandmother (Maternal) Diabetes Hypertension Breast cancer great grandmother Grandfather (Paternal) Diabetes Hypertension Pancreatic cancer Other No pertinent family history Social History Preferred Language: [place] Citizen Communication Ability: Effective Pediatrician/Medical Doctor Required: Yes Beliefs That Will Affect Care: None marital status: Current Living Situation: Spouse and Family Current Living Situation Comment: and 2 children current occupational status: employed Feels Safe at Home: Yes Safety Concerns: Feels Safe At This Time Smoking Status: Never smoker Tobacco Type: cigarettes ; Second Hand Exposure: No ; Hx Alcohol Use: No Hx Substance Use: No Review of Systems no fever, no chills and no sweats no worsening vision no cough and no dyspnea no chest pain, no palpitations, no edema and no calf pain no nausea and no vomiting no dysuria and no urinary frequency no headache(s) Physical Exam Constitutional: WD/WN, vitals as above Eyes: + anicteric sclerae Neck: normal visual inspection Respiratory: normal respiratory effort, lungs clear to auscultation does not use accessory muscles Auscultation: no crackles, no rales, no wheezes and no pleural rub Cardiovascular: Rate/Rhythm: regular rate and regular rhythm Heart Sounds: normal S1 and normal S2; no gallop, no murmur and no cardiac rub Gastrointestinal (Abdomen): Gravid. Uterus at term; + heart tones; vertex position. Estimated weight 8-9 pounds Neurologic: awake; no focal motor deficits Psychiatric: A+Ox3, euthymic affect Genitourinary: OB Exam Monitor Tracing: + external FHT monitor used Cervical Exam: 4cm/ 75% effacement/ -2 station Results & Data Vital Signs (Past 12 Hours) Vital Signs Temp Pulse Resp BP 07/11/19 08:27 36.7 C 100 H 20 126/84 Monitoring External Monitor Mild-Moderate variability,+2 accels in 20 minutes, no decels, baseline HR 140. Tracing: category I Tocodynamometer irreguar contractions Supervising Physician Co-Signing Physician Notes Resident Physician Supervision Note: I interviewed and examined the patient. Discussed with Dr. Jackson and agree with findings and plan as documented in the note. Any exceptions or clarifications are listed here: [None] Documented By: Marie Montesinos DO Resident Activity Tracking Resident Involvement: Resident Care Provided Care Provided: OB Delivery
[2019-07-11] MEDS: LACTATED RINGER'S 1,000 ML IV PRN ×2 (09:31→12:23)
[2019-07-11] MEDS ORDERED: fentaNYL citrate 100 MCG/2 ML VIAL ONE (11:49)
[2019-07-11] MEDS ORDERED: ePHEDrine sulfate 50 MG/ML AMP ONE (11:50)
[2019-07-11] MEDS ORDERED: BUPIVACAINE 0.25% 30 ML VIAL ONE (11:50)
[2019-07-11] MEDS ORDERED: fentaNYL 2MCG/ML ROPIV 1.25MG/ML 100 ML BAG EPI ONE (11:51)
--- NOTE | 2019-07-11 11:58 | Anesthesiology Consultation ---
Date of Service July 11, 2019 Assessment & Plan Chart Review Chart Review: Patient NOT seen in Pre Admission Testing and Acceptable Risk for Labor Epidural Consults Requested none ASA ASA2 Proposed Anesthesia Anesthesia Type: Labor Epidural and CSE Risk / Benefits Reviewed With: PT / POA / Parent / Guardian, Accepts Plan and Informed Consent Obtained History Height/Weight Height: 5 ft 9 in Weight: 106.141 kg Allergies Allergy/AdvReac Type Severity Reaction Status Date / Time codeine AdvReac Intermediate vomiting Verified 07/04/19 14:54 Medications Home Medications Medication Instructions Recorded Confirmed Last Taken PNV cmb#95-ferrous fumarate-FA 1 tab PO DAILY 01/28/19 07/11/19 06/20/19 08:00 [] aspirin 81 mg PO DAILY 02/25/19 07/11/19 07/10/19 20:00 diphenhydramine HCl [Unisom 25 mg PO HS 02/25/19 07/11/19 07/10/19 23:00 SleepMelts] pyridoxine (vitamin B6) [Vitamin 100 mg PO DAILY 02/25/19 07/11/19 07/10/19 23:00 B-6] bupropion HCl 100 mg tablet,12 hr 100 mg PO BID 04/24/19 07/11/19 07/10/19 10:00 sustained-release ferrous sulfate [Iron (ferrous 325 mg PO DAILY 07/11/19 07/11/19 07/10/19 23:00 sulfate)] Active Medications Generic Name Dose Route Start Last Admin Trade Name Freq PRN Reason Stop Dose Admin Lactated Ringer's 1,000 mls @ 125 mls/hr 07/11/19 08:31 07/11/19 11:43 Lr IV 07/13/19 08:30 999 mls/hr .Q8H PRN Infusion L&D Protocol Protocol Oxytocin 30 units in 500 mls @ 9 mls/hr 07/11/19 08:31 07/11/19 11:40 Pitocin IV 07/13/19 08:30 0.54 units/hr .Q24H PRN 9 mls/hr Labor Induction/Augmentation Titration Protocol 0.54 UNITS/HR NPO Date Last Intake of Fluids: 07/11/19 Time Last Intake of Fluids: 09:00 Date Last Intake of Solids: 07/11/19 Time Last Intake of Solids: 07:30 Past Medical History Medical History Anemia (Acute) Chest pain DVT prophylaxis Edema during in third trimester Elevated blood pressure affecting in second trimester, antepartum Enlarged thyroid Hematuria Migraine (Acute) Multiple thyroid nodules Normal vaginal delivery Persistent headaches induced hypertension With 1st , not 2nd with 27 completed weeks gestation Screening, , for anatomic survey Short interval between pregnancies affecting , antepartum Solitary thyroid nodule Thyroid nodule TSH (thyroid-stimulating hormone deficiency) Vaginal delivery Exercise / Class Metabolic Activity II 4-5 Yardwork/Stairs/Walk up hill Past Family History Family History Grandmother (Maternal) Diabetes Hypertension Breast cancer great grandmother Grandfather (Paternal) Diabetes Hypertension Pancreatic cancer Other No pertinent family history Past Surgical History Surgical History H/O wisdom tooth extraction History of appendectomy Past Anesthesia History No Hx of Anesthesia Complications and No Family Hx of Anesthesia Complications History of PONV No Hx of PONV and No Hx of Motion Sickness Social History Smoking Status: Never smoker tobacco type: cigarettes Hx Alcohol Use: No Hx Substance Use: No Review of Systems no chest pain or sob Physical Exam Vital Signs Last Vital Signs Temp 36.7 C 07/11/19 08:27 Pulse 94 H 07/11/19 11:56 Resp 20 07/11/19 10:37 BP 119/68 07/11/19 11:45 Pulse Ox 99 07/11/19 11:56 ENMT Mouth: no TMJ abnormality Thyromental Distance: > or= 3.5 Finger Breadths Mallampati Class: II Neck normal visual inspection Respiratory normal respiratory effort Auscultation: lungs clear to auscultation bilaterally Cardiovascular Rate/Rhythm: regular rate and regular rhythm Musculoskeletal Spine: normal cervical ROM Neurologic moves all extremities Psychiatric Orientation: alert and oriented x 3 Testing Laboratory Results 07/11/19 08:43
[2019-07-11] MEDS ORDERED: ePHEDrine sulfate 50 MG/ML AMP IV PRN (12:01)
[2019-07-11] MEDS ORDERED: ONDANSETRON INJ 2 MG/ML 2 ML VIAL IV PRN (12:01)
[2019-07-11] MEDS ORDERED: NALBUPHINE HCL INJ 10 MG/ML AMP IV PRN (12:01)
[2019-07-11] MEDS ORDERED: DiphenhydrAMINE HCL 50 MG/ML VIAL IV PRN (12:01)
[2019-07-11] MEDS ORDERED: NALOXONE HCL 1 MG in SODIUM CHLORIDE 0.9% 1000ML 1,000 ML IV PRN (12:01)
[2019-07-11] MEDS ORDERED: NALOXONE HCL 0.4 MG/1 ML VIAL/CARP IV PRN (12:01)
--- NOTE | 2019-07-11 13:21 | Labor Progress Brief Note ---
Date of Service July 11, 2019 Subjective Feeling well with epidural. AROM blood-tinged clear fluid. SVE 5/70/-3 FHT Cat 1 [place] Q 2-4 min Anticipate . Results & Data Vital Signs (Past 12 Hours) Vital Signs Temp Pulse Resp BP Pulse Ox 07/11/19 13:13 102 H 98 07/11/19 13:11 87 126/70 07/11/19 13:08 97 H 98 07/11/19 13:03 89 98 07/11/19 12:58 87 98 07/11/19 12:56 84 131/73 07/11/19 12:53 96 H 99 07/11/19 12:48 89 98 07/11/19 12:43 96 H 99 07/11/19 12:41 98 H 121/56 L 07/11/19 12:38 88 98 07/11/19 12:33 95 H 100 07/11/19 12:28 94 H 97 07/11/19 12:25 37.0 C 96 H 20 112/57 L 07/11/19 12:23 99 H 97 07/11/19 12:20 96 H 109/62 07/11/19 12:18 96 H 115/63 99 07/11/19 12:16 88 120/68 07/11/19 12:13 95 H 98 07/11/19 12:08 95 H 99 07/11/19 12:03 89 99 07/11/19 11:56 94 H 99 07/11/19 11:51 93 H 99 07/11/19 11:46 93 H 99 07/11/19 11:45 93 H 119/68 07/11/19 10:37 95 H 20 105/62 07/11/19 09:37 98 H 124/83 07/11/19 08:27 36.7 C 100 H 20 126/84
[2019-07-11] MEDS: fentaNYL 2MCG/ML ROPIV 1.25MG/ML 100 ML BAG EPI PRN ×2 (14:59→15:15)
[2019-07-11] MEDS ORDERED: HYDROCORTISONE ACETATE 25 MG SUPP PR PRN (16:06)
[2019-07-11] MEDS ORDERED: OXYCODONE/ACETAMINOPHEN 5mg/325mg TAB PO PRN (16:06)
[2019-07-11] MEDS ORDERED: ACETAMINOPHEN 325 MG TAB PO PRN (16:06)
[2019-07-11] MEDS ORDERED: DIPHTHERIA/TETANUS/PERTUSSIS 0.5 ML SYR/VIAL IM ONE (16:06)
[2019-07-11] MEDS ORDERED: SUPERCREAM 0.870% 15 GM JAR EXT PRN (16:06)
[2019-07-11] MEDS ORDERED: BISACODYL 10 MG SUPP PR PRN (16:06)
[2019-07-11] MEDS ORDERED: BENZOCAINE 20% AER SPR 82.5 GM CAN EXT PRN (16:06)
--- NOTE | 2019-07-11 16:11 | Delivery Summary ---
Vaginal Delivery Summary Date of Service July 11, 2019 Vaginal Delivery Summary Vaginal Delivery Summary: Pre-delivery diagnoses: 23yo @ 39 08/26, elective induction. H/o hypertension in prior pregnancies. Post-delivery diagnoses: same Procedure: spontaneous vaginal delivery Surgeon: Marie Montesinos DO Complications: none Findings: Viable female . Apgars: 8/9. Weight pending, please see nursery records Estimated blood loss: 300ml Description of delivery: The patient progressed to complete with epidural anesthesia. She then began to push. She spontaneously vaginally delivered a viable from the cephalic presentation. The head delivered in LOP position. The anterior shoulder delivered, followed by the posterior shoulder, followed by the body. No nuchal cord. The baby was placed on mother's abdomen and a spontaneous cry was heard. Delayed cord clamping was employed, and the cord was doubly clamped and cut. Cord blood was obtained. The placenta was delivered spontaneously intact with a 3-vessel cord. The uterus and vagina were swept of clots and debris. IV pitocin was given. The uterus became firm. The cervix, vagina, and perineum were inspected and no lacerations were noted. Excellent hemostasis was observed. The mother and baby are recovering in stable and good condition in the room. Sponge and instrument counts were correct x 2. Marie Montesinos DO [facility] [place]
[2019-07-11] MEDS ORDERED: LACTATED RINGER'S 1,000 ML IV SCH (16:15)
--- NOTE | 2019-07-11 17:15 | Anesthesia Procedure Note ---
Date of Service July 11, 2019 Anesthesia Post Epidural Note Vital Signs Vital Signs: Temp Pulse Resp BP Pulse Ox 36.7 C 95 H 18 136/73 98 07/11/19 15:09 07/11/19 17:13 07/11/19 16:35 07/11/19 17:06 07/11/19 17:13 Pain Intensity Abdomen: Pain Intensity: 0 Notes Mental Status: alert / awake / arousable and participated in evaluation Nausea / Vomiting: adequately controlled Pain: adequately controlled Airway Patency, RR, SpO2: stable & adequate BP & HR: stable & adequate Hydration State: stable & adequate Neuraxial Anesthesia: was administered and sensory block is resolving Anesthetic Complications: no major complications apparent and Pt Satisfied with anesthetic care Epidural: Removed without complications and With tip intact
[2019-07-11] MEDS: IBUPROFEN 600 MG TAB PO PRN ×2 (19:42→23:25)
[2019-07-11] MEDS: BuPROPion SR 100 MG TABCR PO SCH (20:16)
[2019-07-11] MEDS: DOCUSATE SODIUM 100 MG CAP PO SCH (20:16)
[2019-07-12] MEDS: IBUPROFEN 600 MG TAB PO PRN ×2 (04:02→08:29)
[2019-07-12 05:08] VITALS: O2SAT 98
--- NOTE | 2019-07-12 06:02 | Obstetrical Progress Note ---
Date of Service July 12, 2019 Assessment & Plan (1) Status post vaginal delivery: Lena is a 23 yo on PPD1 after at 39w - GBS -, Blood Type A+, Rubella immune -Vitals reviewed and WNL: Blood pressure normotensive at 126/83. -patient is doing clinically well and desires to go home today Discharge instructions reviewed. Patient advised to come into office on Sunday07/16/19 for blood pressure check. Her blood pressures throughout her post- period have all been normotensive. With regards to her history of post- hypertension, we will send a script to her preferred pharmacy for labetalol 100mg bid. We had a lengthy discussion with Lena about the risks of being placed on labetalol masking the presentation of developing pre-eclampsia; through shared decision making, we have agreed to prescribe the labetalol. She will contact the office with any concerns in the meantime; if symptoms are severe, she will go to the nearest emergency department. - After discharge will have [address] Montesinos. Supervising Physician Co-Signing Physician Notes Resident Physician Supervision Note: I was present with Dr. Jackson during the history and exam. I discussed the case with the resident and agree with the findings and plan as documented in the note. Any exceptions or clarifications are listed here: PPD#1 doing well. DC home today per patient request. She will go home with Rx labetalol 100mg BID. This is a continuation on what she was recommended to do by band saw operator after hypertension with her prior . Her cardio suggested that she repeat this regimen this time also. She will also follow up in the office for BP check this week. She is aware that if she develops headache, vision changes, N/V, severe RUQ pain, or any other symptoms she is to go to ER or office for evaluation. Documented By: Marie Montesinos DO Subjective Ambulation: ambulating normally Voiding: no voiding problems Passing Gas:: Yes Diet Tolerance:: regular diet Lochia:: moderate Feeding Type:: breast feeding Review of Systems Constitutional: no fever, no chills and no sweats Eyes: no worsening vision Respiratory: no cough and no dyspnea Cardiovascular: no chest pain, no palpitations, no edema and no calf pain Gastrointestinal: no nausea and no vomiting Genitourinary: no dysuria and no urinary frequency Neurologic: no headache(s) Physical Exam Constitutional: WD/WN, vitals as above no acute distress Respiratory: normal respiratory effort, lungs clear to auscultation does not use accessory muscles Auscultation: no crackles, no rales, no rhonchi, no wheezes and no pleural rub Cardiovascular: Rate/Rhythm: regular rate and regular rhythm Heart Sounds: normal S1 and normal S2; no gallop, no murmur and no cardiac rub Extremities: no calf tenderness and no pedal edema Gastrointestinal (Abdomen): Inspection/Auscultation: normal bowel sounds; abdomen not distended Percussion/Palpation: abdomen soft Genitourinary: Uterus: fundus firm, palpable 1 cm below the umbilicus Results & Data Vital Signs (Past 12 Hours) Vital Signs Temp Pulse Pulse Resp BP Pulse Ox 07/12/19 04:05 36.4 C L 70 18 126/83 98 07/11/19 23:20 36.5 C 85 18 128/87 99 07/11/19 20:15 36.3 C L 81 16 146/92 H 07/11/19 18:00 36.9 C 86 16 138/85 96 Resident Activity Tracking Resident Involvement: Resident Care Provided Care Provided: OB Delivery
[2019-07-12 06:41] LABS: Hematocrit (blood only) 32.4 % (37-47); Hemoglobin 10.7 g/dL (12.0-16.0); Mean Corpuscular Hemoglobin 25.1 pg (25-34); Mean Corpuscular Volume 75.9 fL (80-100); Mean Platelet Volume 10.3 fL (7.4-10.4); Platelet Count 209 K/uL (130-400); RDW Coefficient of Variation 18.4 % (11.5-14.5); RDW Standard Deviation 51.1 fL (36.4-46.3); Red Blood Count 4.27 M/uL (4.2-5.4)
[2019-07-12] MEDS ORDERED: PRENATAL VITAMIN 1 TAB PO SCH (08:00)
[2019-07-12] MEDS: DOCUSATE SODIUM 100 MG CAP PO SCH (08:18)
[2019-07-12] MEDS ORDERED: NON-FORMULARY MEDICATION (Pnv Cmb#95-Ferrous Fumarate-Fa [Prenatal] 1 TAB) PO SCH (09:00)
[2019-07-12] MEDS: BuPROPion SR 100 MG TABCR PO SCH (09:17)
[2019-07-12 15:53] VITALS: BP 138/105; PULSE 74; TEMP 97.9
[2019-07-12] MEDS ORDERED: BISACODYL 5 MG TABEC PO SCH (20:00)
== END 2019-07-12 16:50 | disposition home or self-care (01) | DRG 807 ==
LOC: 4S1 08:21 → 4S2 18:19

== ENCOUNTER 2020-11-03 02:53 | Inpatient (IN) ==
--- NOTE | 2020-11-03 06:27 | Obstetrical Progress Note ---
Date of Service November 03, 2020 Assessment & Plan (1) : 25 y/o at 39 5/7 wga VSS NST reactive r/o labor - 5cm for me, however is still long and thick, ctx irreg. Will carlos as pt appears relatively comfortable and assess if any change after few hours GBS+ Plan discussed w/ pt, she is amenable Subjective 25 y/o at 39 5/7 wga w/ RHEA 11/05 by LMP who presents w/ c/o pressure and irregular ctx. Has been having worsening pressure/ctx over last few days, had sex last night around 930 pm and noted worsening pressure and somewhat ctx. Noted ctx pain did worsen when she got here. +FM; denies LOF, VB. Was checked earlier by nursing who felt she was loose 4cm on initial check, on recheck was unsure and so was subsequently examined by myself PNI: Hx enlarged thyroid Hx pp hypertension +Covid 08/20 Obesity BMI 38 Short interval GBS+ desires pp tubal Physical Exam Constitutional: WD/WN, vitals as above Respiratory: normal respiratory effort; no respiratory distress and no labored breathing Psychiatric: A+Ox3, euthymic affect Genitourinary: Manual OB Exam: + cervical dilation 5 cm, + cervical effacement 20% and + station high OB Exam Monitor Tracing: + external FHT monitor used, + external uterine monitor used (q4-8 min) and + category I (120/mod/+accel/- decel) Results & Data ([facility]) Vital Signs (Past 12 Hours) Vital Signs Temp Pulse Resp BP 11/03/20 03:08 78 128/87 11/03/20 03:07 98.6 F 78 18 128/87 PG Care Time/CCT Total # of Minutes Spent Total Time Spent with Patient: Total time spent is greater than 50% in coordination of care (as documented) at patient's floor/unit and/or counseling patient: Coding Level of Care Code None Diagnoses Z34.90
[2020-11-03] MEDS ORDERED: OXYTOCIN 30 UNITS/500 ML BAG IV PRN ×3 (08:42→19:13)
[2020-11-03] MEDS: LACTATED RINGER'S 1,000 ML IV PRN ×2 (08:51→17:26)
--- NOTE | 2020-11-03 08:52 | History & Physical Report ---
Date of Service November 03, 2020 Assessment & Plan (1) : 25 y/o at 39 5/7 wga presenting in labor VSS Fetus cat 1 Labor - SVE has progressed over 2 hours with infrequent contractions, continue spontaneous labor GBS+, PCN ordered Epidural PRN History of Present Illness Chief Complaint: 25 Primary Care Provider: Leonor Gonzalez, DO 25 y/o at 39 5/7 wga w/ RHEA 11/05 by LMP who presents w/ c/o pressure and irregular ctx. Has been having worsening pressure/ctx over last few days, had sex last night around 930 pm and noted worsening pressure and somewhat ctx. Noted ctx pain did worsen when she got here. +FM; denies LOF, VB. Was checked earlier by nursing who felt she was loose 4cm on initial check, on recheck was unsure and so was subsequently examined by myself. Initial check was 5/L/H for me, now progressed to 6 PNI: Hx enlarged thyroid Hx pp hypertension +Covid / Obesity BMI 38 Short interval GBS+ desires pp tubal G1 2014 at 40 wks G2 2017 at 39 wks G3 2018 at 39 wks G4 current Menarche 10, cycles q28-30d pap 10/04/17 neg, no hx abnl pap denies hx STI Allergies Allergy/AdvReac Type Severity Reaction Status Date / Time codeine AdvReac Intermediate vomiting Verified 10/29/20 13:45 oxycodone AdvReac Intermediate vomiting Verified 10/29/20 13:45 Home Medications Medication Instructions Recorded Confirmed Type PNV cmb#95-ferrous fumarate-FA 1 tab PO DAILY 11/03/20 11/03/20 History [] doxylamine succinate [Unisom 25 mg PO HS PRN 11/03/20 11/03/20 History (doxylamine)] ferrous sulfate 7.5 mg PO DAILY 11/03/20 11/03/20 History vit no.768-mfbz-wmcnm 800 tab PO DAILY 11/03/20 11/03/20 History [ Vitamin] pyridoxine (vitamin B6) [Vitamin 100 mg PO DAILY 11/03/20 11/03/20 History B-6] Patient History Medical History Anemia Chest pain DVT prophylaxis Edema during in third trimester Elective induction of labor planned Elevated blood pressure affecting in second trimester, antepartum Enlarged thyroid Hematuria Migraine Multiple thyroid nodules Normal vaginal delivery Obesity affecting , antepartum Persistent headaches induced hypertension With 1st , not 2nd with 27 completed weeks gestation Screening, , for anatomic survey Short interval between pregnancies affecting , antepartum Solitary thyroid nodule Supervision of normal intrauterine in multigravida Thyroid nodule TSH (thyroid-stimulating hormone deficiency) Vaginal delivery Surgical History H/O wisdom tooth extraction History of appendectomy S/P tonsillectomy and adenoidectomy Status post vaginal delivery Family History Grandmother (Maternal) Diabetes Hypertension Breast cancer great grandmother Grandfather (Paternal) Diabetes Hypertension Pancreatic cancer Other No pertinent family history Denies family history of Myocardial infarction Stroke Social History Smoking Status: Former smoker Tobacco Type: Cigarettes Smoking End Date: 05/2017; Second Hand Exposure: No; Do You Dip or Chew Tobacco: No; Hx Alcohol Use: No Hx Substance Use: No Preferred Language: Czech Communication Ability: Effective Communication Ability Comment: contacts currently in Floor Coverings Installer Required: No Beliefs That Will Affect Care: None marital status: marital status details: gillian Jefferson ([phone] Current Living Situation: Family Current Living Situation Comment: and 3 children, dog current occupational status: unemployed current occupation: laid off since 09/2019 Other Information That Helps Us Care for You: No Feels Safe at Home: Yes Safety Concerns: Feels Safe At This Time Assistive Devices: Contacts Physical Exam Constitutional: WD/WN, vitals as above Respiratory: normal respiratory effort; no respiratory distress and no labored breathing Psychiatric: A+Ox3, euthymic affect Genitourinary: Manual OB Exam: + cervical dilation 6 cm, + cervical effacement 30% and + station high OB Exam Monitor Tracing: + external FHT monitor used, + external uterine monitor used (q7 min) and + category I (130/mod/+accel/- decel) Results & Data ([facility]) Vital Signs (Past 12 Hours) Vital Signs Temp Pulse Resp BP 11/03/20 07:12 85 132/82 11/03/20 07:10 98.1 F 18 11/03/20 03:08 78 128/87 11/03/20 03:07 98.6 F 78 18 128/87 Laboratory Results OB Labs: Blood Type A Positive 03/26/20 Antibody Screen NEGATIVE 03/26/20 Hemoglobin 10.2 g/dL (12.0-16.0) L 09/04/20 Hematocrit 31.0 % (37-47) L 09/04/20 Mean Corpuscular Volume 73.5 fL (80-100) L 09/04/20 Platelet Count 219 K/uL (130-400) 09/04/20 Rubella IgG Antibody Immune (Immune) 03/26/20 Rapid Plasma Reagin Nonreactive (Nonreactive) 03/26/20 Hepatitis B Surface Antigen Neg (Neg) 03/26/20 HIV (1&2) Ab and P24 Ag, 4th Gener Neg (Neg) 03/26/20 Glucose 1 Hour 50 gm Load 102 mg/dl (70-130) 08/16/20 Maternal Serum Alpha Fetoprotein 29.9 ng/mL 05/18/20 OB Optional Labs: Chlamydia trachomatis RNA NOT DETECTED (NOT DETECTED) 03/26/20 Neisseria gonorrhoeae RNA NOT DETECTED (NOT DETECTED) 03/26/20 Thyroid Stimulating Hormone (TSH) 0.434 uIu/ml (0.300-4.500) 05/24/20 Alpha Fetoprotein Triple Screen SEE NOTE 05/18/20 Alpha Fetoprotein 24.0 NG/ML 11/19/17 Labs Reviewed: (-)cfDNA/MSAFP declined CF/SMA GBS+ COVID+ 1/ Coding Level of Care Code None Diagnoses Z34.90
[2020-11-03] MEDS ORDERED: PENICILLIN G POTASSIUM 6 MU in DEXTROSE 5% 250 ML IV ONE (09:00)
[2020-11-03 09:04] LABS: Hematocrit (blood only) 31.1 % (37-47); Hemoglobin 10.1 g/dL (12.0-16.0); Mean Corpuscular Hemoglobin 23.5 pg (25-34); Mean Corpuscular Hgb Conc 32.5 g/dL (32-36); Mean Corpuscular Volume 72.3 fL (80-100); Platelet Count 237 K/uL (130-400); RDW Coefficient of Variation 15.9 % (11.5-14.5); White Blood Count 8.22 K/uL (4.8-10.8)
[2020-11-03] MEDS: PENICILLIN G POTASSIUM 3 MU in DEXTROSE 5% 100 ML IV PRN ×2 (12:35→16:25)
--- NOTE | 2020-11-03 13:38 | Labor Progress Brief Note ---
Date of Service November 03, 2020 Subjective Reason For Note: Routine Evaluation Assessment & Plan (1) Supervision of normal intrauterine in multigravida: 25yo at 39.5 weeks GA. Labor 1. Fetus: Cat 1 2. Labor: Unchanged, AROM clr 3. GBS + : Continue PCN, Complete prior to rupture. (2) GBS carrier: Admission and Anticipated Discharge Date Admission Date: November 03, 2020 Physical Exam Constitutional: WD/WN, vitals as above Psychiatric: A+Ox3, euthymic affect Genitourinary: Manual OB Exam: + cervical dilation 6 cm, + cervical effacement 50%, + station -2 and + amniotic fluid (AROM) clear Results & Data ([facility]) Vital Signs (Past 12 Hours) Vital Signs Temp Pulse Resp BP 11/03/20 11:40 16 11/03/20 10:30 36.7 C 18 11/03/20 10:29 86 132/83 11/03/20 10:00 18 11/03/20 09:40 18 11/03/20 09:10 18 11/03/20 08:40 18 11/03/20 07:12 85 132/82 11/03/20 07:10 36.7 C 18 11/03/20 03:08 78 128/87 11/03/20 03:07 37.0 C 78 18 128/87 Coding Level of Care Code None Diagnoses Supervision of normal intrauterine in multigravida Z34.80 GBS carrier Z22.330
[2020-11-03] MEDS ORDERED: fentaNYL citrate 100 MCG/2 ML VIAL ONE (16:28)
[2020-11-03] MEDS ORDERED: SODIUM CHLORIDE 0.9% INJ 10 ML VIAL ONE (16:28)
[2020-11-03] MEDS ORDERED: ePHEDrine sulfate 50 MG/ML AMP ONE (16:28)
[2020-11-03] MEDS ORDERED: BUPIVACAINE 0.25% 30 ML VIAL ONE (16:28)
[2020-11-03] MEDS ORDERED: fentaNYL 2MCG/ML ROPIVACAINE 1.25MG/ML 100 ML BAG EPI ONE (16:29)
[2020-11-03] MEDS ORDERED: NALOXONE HCL 0.4 MG/1 ML VIAL/CARP IV PRN (16:45)
[2020-11-03] MEDS ORDERED: diphenhydrAMINE 50 MG/ML VIAL IV PRN (16:45)
[2020-11-03] MEDS ORDERED: fentaNYL 2MCG/ML ROPIVACAINE 1.25MG/ML 100 ML BAG EPI PRN (16:45)
[2020-11-03] MEDS ORDERED: NALOXONE HCL 1 MG in SODIUM CHLORIDE 0.9% 1000ML 1,000 ML IV PRN (16:45)
[2020-11-03] MEDS ORDERED: ONDANSETRON INJ 2 MG/ML 2 ML VIAL IV PRN (16:45)
[2020-11-03] MEDS ORDERED: ePHEDrine sulfate 50 MG/ML AMP IV PRN (16:45)
--- NOTE | 2020-11-03 16:48 | Anesthesiology Consultation ---
Date of Service November 03, 2020 The patient had Covid 19 in July,. Assessment & Plan Chart Review Chart Review: Patient NOT seen in Pre Admission Testing and Acceptable Risk for Labor Epidural Consults Requested none ASA ASA2 Proposed Anesthesia Anesthesia Type: Labor Epidural and CSE Risk / Benefits Reviewed With: PT / POA / Parent / Guardian, Accepts Plan and Informed Consent Obtained History Height/Weight Height: 5 ft 7 in Weight: 111.13 kg Allergies Allergy/AdvReac Type Severity Reaction Status Date / Time codeine AdvReac Intermediate vomiting Verified 10/29/20 13:45 oxycodone AdvReac Intermediate vomiting Verified 10/29/20 13:45 Medications Home Medications Medication Instructions Recorded Confirmed Last Taken PNV cmb#95-ferrous fumarate-FA 1 tab PO DAILY 11/03/20 11/03/20 11/01/20 21:00 [] doxylamine succinate [Unisom 25 mg PO HS PRN 11/03/20 11/03/20 11/01/20 21:00 (doxylamine)] ferrous sulfate 7.5 mg PO DAILY 11/03/20 11/03/20 11/01/20 21:00 vit no.078-avdh-esbuc 800 tab PO DAILY 11/03/20 11/03/20 11/01/20 21:00 [ Vitamin] pyridoxine (vitamin B6) [Vitamin 100 mg PO DAILY 11/03/20 11/03/20 11/01/20 B-6] Active Medications Generic Name Dose Route Start Last Admin Trade Name Freq PRN Reason Stop Dose Admin Lactated Ringer's 1,000 mls @ 125 mls/hr 11/03/20 08:42 11/03/20 16:39 Lr IV 11/05/20 08:41 999 mls/hr .Q8H PRN Infusion L&D Protocol Protocol Penicillin G Potassium 3 mu/ 106 mls @ 100 mls/hr 11/03/20 13:00 11/03/20 16:25 Dextrose IV 11/13/20 12:59 100 mls/hr Q4H PRN Administration Give until delivery Oxytocin 30 units in 500 mls @ 4 mls/hr 11/03/20 15:17 11/03/20 16:04 Pitocin IV 11/05/20 15:16 0.24 units/hr .Q24H PRN 4 mls/hr Labor Induction/Augmentation Titration Protocol 0.24 UNITS/HR NPO Date Last Intake of Fluids: 11/03/20 Time Last Intake of Fluids: 14:00 Date Last Intake of Solids: 11/02/20 Time Last Intake of Solids: 11:00 Past Medical History Medical History Anemia Chest pain DVT prophylaxis Edema during in third trimester Elective induction of labor planned Elevated blood pressure affecting in second trimester, antepartum Enlarged thyroid Hematuria Migraine Multiple thyroid nodules Normal vaginal delivery Obesity affecting , antepartum Persistent headaches induced hypertension With 1st , not 2nd with 27 completed weeks gestation Screening, , for anatomic survey Short interval between pregnancies affecting , antepartum Solitary thyroid nodule Supervision of normal intrauterine in multigravida Thyroid nodule TSH (thyroid-stimulating hormone deficiency) Vaginal delivery Exercise / Class Metabolic Activity II 4-5 Yardwork/Stairs/Walk up hill Past Family History Family History Grandmother (Maternal) Diabetes Hypertension Breast cancer great grandmother Grandfather (Paternal) Diabetes Hypertension Pancreatic cancer Other No pertinent family history Denies family history of Myocardial infarction Stroke Past Surgical History Surgical History H/O wisdom tooth extraction History of appendectomy S/P tonsillectomy and adenoidectomy Status post vaginal delivery Past Anesthesia History No Hx of Anesthesia Complications and No Family Hx of Anesthesia Complications History of PONV No Hx of PONV and No Hx of Motion Sickness Social History Smoking Status: Former smoker tobacco type: cigarettes Do You Dip or Chew Tobacco: No Smoking End Date: 05/2017 Hx Alcohol Use: No Hx Substance Use: No substance use type: does not use Review of Systems no chest pain or sob Physical Exam Vital Signs Last Vital Signs Temp 36.7 C 11/03/20 10:30 Pulse 102 H 11/03/20 16:44 Resp 18 11/03/20 14:00 BP 131/70 11/03/20 15:10 Pulse Ox 100 11/03/20 16:44 ENMT Mouth: no TMJ abnormality Thyromental Distance: > or= 3.5 Finger Breadths Mallampati Class: II Neck normal visual inspection Respiratory normal respiratory effort Auscultation: lungs clear to auscultation bilaterally Cardiovascular Rate/Rhythm: regular rate and regular rhythm Musculoskeletal Spine: normal cervical ROM Neurologic moves all extremities Psychiatric Orientation: alert and oriented x 3 Testing Laboratory Results 11/03/20 08:49 Blood Type A Positive 11/03/20 08:49 Antibody Screen NEGATIVE 11/03/20 08:49
[2020-11-03] MEDS ORDERED: bisacodyL 10 MG SUPP PR PRN (19:13)
[2020-11-03] MEDS ORDERED: BENZOCAINE 20% AER SPR 82.5 GM CAN EXT PRN (19:13)
[2020-11-03] MEDS ORDERED: SUPERCREAM 0.870% 15 GM JAR EXT PRN (19:13)
[2020-11-03] MEDS ORDERED: DIPHTHERIA/TETANUS/PERTUSSIS 0.5 ML SYR/VIAL IM ONE (19:13)
[2020-11-03] MEDS ORDERED: HYDROCORTISONE ACETATE 25 MG SUPP PR PRN (19:13)
[2020-11-03] MEDS ORDERED: ACETAMINOPHEN 325 MG TAB PO PRN (19:13)
[2020-11-03] MEDS: IBUPROFEN 600 MG TAB PO PRN ×2 (19:45→23:38)
--- NOTE | 2020-11-03 20:02 | Anesthesia Procedure Note ---
Date of Service November 03, 2020 Anesthesia Post Epidural Note Vital Signs Vital Signs: Temp Pulse Resp BP Pulse Ox 36.7 C 85 18 144/81 H 98 11/03/20 19:00 11/03/20 19:37 11/03/20 19:30 11/03/20 19:37 11/03/20 17:54 Pain Intensity Bilateral Head: Pain Intensity: 4 Bilateral Episiotomy/Laceration: Pain Intensity: 1 Notes Mental Status: alert / awake / arousable and participated in evaluation Nausea / Vomiting: adequately controlled Pain: adequately controlled Airway Patency, RR, SpO2: stable & adequate BP & HR: stable & adequate Hydration State: stable & adequate Neuraxial Anesthesia: was administered and sensory block is resolving Anesthetic Complications: no major complications apparent and Pt Satisfied with anesthetic care Epidural: Removed without complications and With tip intact Notes: Epidural site clean, dry and intact. No signs of edema, erythema or bruising at insertion site. Pt instructed to request anesthesia if she has residual lower extremity numbness or if she develops lower extremity pain or we akness, back pain or headache.
--- NOTE | 2020-11-03 20:52 | Delivery Summary ---
DATE OF OPERATION: 11/03/2020 PROCEDURE: Normal spontaneous vaginal delivery. SURGEON: Abner Craig MD. PREOPERATIVE DIAGNOSES: 1. Single intrauterine at 39 weeks 5 days gestational age. 2. Labor. 3. Body mass index greater than 35. 4. Short interval . 5. Group B Streptococcus positive. POSTOPERATIVE DIAGNOSES: 1. Single intrauterine at 39 weeks 5 days gestational age. 2. Labor. 3. Body mass index greater than 35. 4. Short interval . 5. Group B Streptococcus positive. 6. Status post delivery. ESTIMATED BLOOD LOSS: 200 mL. DRAINS: None. FLUIDS: Continuous lactated Ringer. URINE OUTPUT: Not measured. COMPLICATIONS: None. FINDINGS: Viable male with weight pending and Apgars of 9 and 9 at one and five minutes respectively. INDICATIONS: Lena is a 25-year-old , admitted at 39 weeks 5 days gestational age in early labor. At the time of admission, the patient was found to be 6 cm dilated, 25% effaced, -2 station. She was allowed to progress in labor and augmented and underwent artificial rupture of membranes after becoming complete on penicillin. After 2 hours with no change, the patient was started on oxytocin per regular protocol. She then progressed in labor quickly, received an epidural for anesthesia and pushed over 1 contraction to achieve delivery. DESCRIPTION OF PROCEDURE: The patient progressed to 10 cm dilated, 100% effaced, +2 station, pushed over intact perineum with epidural anesthesia and delivered a viable male infant, weight and Apgars as noted above. Head of the delivered in NILDA position and restituted to right transverse. A loose nuchal cord was noted, which was easily reduced. Body and shoulders quickly followed. was noted to be vigorous upon delivery and 1-minute delayed cord clamping was initiated. Cord was then double clamped and cut. remained on maternal abdomen. Cord blood was obtained. Attention was then turned to delivery of the placenta, which was delivered intact, 3-vessel cord, gentle cord traction. On inspection of perineum, vagina, and cervix, it was noted to have no lacerations. Sponge and instrument counts were correct at the completion of the case. Both mother and are stable in the immediate post-delivery period. I attest to the content of the Intraoperative Record and any orders documented therein. Any exception s are noted below.
[2020-11-03] MEDS: DOCUSATE SODIUM 100 MG CAP PO SCH (20:59)
--- NOTE | 2020-11-04 05:57 | Obstetrical Progress Note ---
Date of Service <Jonas Cardozo MD - Last Filed: 11/04/20 07:02> November 04, 2020 Assessment & Plan <Jonas Cardozo MD - Last Filed: 11/04/20 07:02> (1) : - PNL: Rh pos, RI, GBS pos (intrapartum PCN), COVID neg - Feels well today. Eating well, voiding well, ambulating well - Pain well controlled with ibuprofen 600mg Q4H PRN - Routine care -- OOB, ambulation, diet progression as tolerated - After discharge will have 6 week follow-up with Dr. Craig (2) GBS carrier: Subjective <Jonas Cardozo MD - Last Filed: 11/04/20 07:02> Lena is a 25 y/o female who is PPD #1 following at 39+ weeks. She reports feeling well overall this morning. Light abdominal cramping and 0/10 pain well managed on analgesics. Voiding well. Tolerating meals overnight without difficulty. Patient has been able to ambulate some. Is passing gas and had a bowel movement. Has persistent lochia with some improvement this morning. Currently . Review of Systems Denies fever or chills. Denies shortness of breath or cough. Denies chest pain. Denies breast pain. Denies dysuria. Denies leg pain or leg swelling. Denies headache or changes in vision. Physical Exam <Jonas Cardozo MD - Last Filed: 11/04/20 07:02> General: Alert, oriented. No acute distress. Cardiac: Regular rate and rhythm. No murmurs. Respiratory: Clear to auscultation bilaterally a/p, no wheezes/rales/rhonchi. No increased work of breathing. Symmetrical chest rise. No respiratory distress. Abdomen: Soft, nontender, nondistended. Bowel sounds present. Uterus: Uterine fundus firm, palpable 1 cm below umbilicus. Lower Extremities: No lower extremity edema or swelling. No deep calf pain. Fernanda's negative bilaterally. Results & Data ([facility]) <Jonas Cardozo MD - Last Filed: 11/04/20 07:02> Vital Signs (Past 12 Hours) Vital Signs Temp Pulse Pulse Resp BP BP Pulse Ox 11/04/20 03:20 36.9 C 85 16 133/84 97 11/03/20 23:10 37.1 C 86 16 149/99 H 98 11/03/20 20:45 37.0 C 80 16 138/87 99 11/03/20 20:06 84 132/83 11/03/20 20:00 36.7 C 18 11/03/20 19:37 85 144/81 H 11/03/20 19:30 18 11/03/20 19:01 66 125/80 11/03/20 19:00 36.7 C 18 11/03/20 18:47 72 132/77 11/03/20 18:31 73 123/66 11/03/20 18:16 69 131/89 11/03/20 18:01 80 125/83 <Abner Craig MD - Last Filed: 11/04/20 08:47> Co-Signing Physician Notes Patient seen and evaluated and agree with the above findings and plan. Doing well. Routine care Resident Activity Tracking <Jonas Cardozo MD - Last Filed: 11/04/20 07:02> Resident Involvement: Resident Care Provided Care Provided: OB Delivery
[2020-11-04 06:08] LABS: Hematocrit (blood only) 27.7 % (37-47); Hemoglobin 8.8 g/dL (12.0-16.0)
[2020-11-04] MEDS: PRENATAL VITAMIN 1 TAB PO SCH (08:25)
[2020-11-04] MEDS: LABETALOL HCL 100 MG TAB PO SCH ×2 (08:25→20:39)
[2020-11-04] MEDS: DOCUSATE SODIUM 100 MG CAP PO SCH ×2 (08:25→20:39)
[2020-11-04] MEDS: IBUPROFEN 600 MG TAB PO PRN ×3 (08:25→20:43)
[2020-11-04] MEDS ORDERED: bisacodyL 5 MG TABEC PO SCH (20:00)
[2020-11-05] MEDS: IBUPROFEN 600 MG TAB PO PRN (02:38)
--- NOTE | 2020-11-05 05:15 | Obstetrical Progress Note ---
Date of Service <Jonas Cardozo MD - Last Filed: 11/05/20 07:14> November 05, 2020 Assessment & Plan <Jonas Cardozo MD - Last Filed: 11/05/20 07:14> (1) : - PNL: Rh pos, RI, GBS pos (intrapartum PCN), COVID neg - Feels well today. Eating well, voiding well, ambulating well - Pain well controlled with ibuprofen 600mg Q4H PRN - Routine care -- OOB, ambulation, diet progression as tolerated - Currently on labetalol daily for BP control - After discharge will have 1 week blood pressure check and 6 week follow-up with Dr. Craig (2) GBS carrier: Subjective <Jonas Cardozo MD - Last Filed: 11/05/20 07:14> Lena is a 25 y/o female who is PPD #2 following at 39+ weeks. She reports feeling well overall this morning. Light abdominal cramping and 0/10 pain well managed on analgesics. Voiding well. Tolerating meals overnight without difficulty. Patient has been able to ambulate some. Is passing gas and has had a bowel movement. Has persistent lochia with some improvement this morning. Currently . Review of Systems Denies fever or chills. Denies shortness of breath or cough. Denies chest pain. Denies breast pain. Denies dysuria. Denies leg pain or leg swelling. Denies headache or changes in vision. Physical Exam <Jonas Cardozo MD - Last Filed: 11/05/20 07:14> General: Alert, oriented. No acute distress. Cardiac: Regular rate and rhythm. No murmurs. Respiratory: Clear to auscultation bilaterally a/p, no wheezes/rales/rhonchi. No increased work of breathing. Symmetrical chest rise. No respiratory distress. Abdomen: Soft, nontender, nondistended. Bowel sounds present. Uterus: Uterine fundus firm, palpable ~2 cm below umbilicus. Lower Extremities: No lower extremity edema or swelling. No deep calf pain. Fernanda's negative bilaterally. Results & Data ([facility]) <Jonas Cardozo MD - Last Filed: 11/05/20 07:14> Vital Signs (Past 12 Hours) Vital Signs Temp Pulse Resp BP Pulse Ox 11/04/20 23:50 36.6 C 89 16 118/79 99 11/04/20 20:37 124/84 <Abigail Carvre MD, FACOG - Last Filed: 11/05/20 07:51> Co-Signing Physician Notes Resident Physician Supervision Note: I interviewed and examined the patient. Discussed with Dr. Evans and agree with findings and plan as documented in the note. Any exceptions or clarifications are listed here: Doing well. Has started on labetalol because of a hx of PP blood pressure elevations. she was advised to call if feels poorly on that. PLan d/c with f/u in the office in one week. Documented By: Abigail Carver MD, FACOG Resident Activity Tracking <Jonas Cardozo MD - Last Filed: 11/05/20 07:14> Resident Involvement: Resident Care Provided Care Provided: OB Delivery
[2020-11-05] MEDS: DOCUSATE SODIUM 100 MG CAP PO SCH (08:08)
[2020-11-05] MEDS: PRENATAL VITAMIN 1 TAB PO SCH (08:08)
[2020-11-05 08:39] VITALS: BP 124/84; PULSE 77; TEMP 97.7; O2SAT 98
[2020-11-05] MEDS: LABETALOL HCL 100 MG TAB PO SCH (08:53)
== END 2020-11-05 10:30 | disposition home or self-care (01) | DRG 807 ==
LOC: OPB 02:53 → 4S1 02:58 → 4S2 20:45

== ENCOUNTER 2025-08-07 12:35 | Inpatient (IN) ==
[2025-08-07 13:28] LABS: Hematocrit (blood only) 34.7 % (37.0-47.0); Hemoglobin 11.8 g/dL (12.0-16.0); Immature Granulocytes # (auto) 0.04 K/uL (0.01-0.20); Immature Granulocytes % (auto) 0.4 %; Mean Corpuscular Hemoglobin 26.6 pg (25.0-34.0); Mean Corpuscular Volume 78.3 fL (80.0-100.0); Platelet Count 207 K/uL (130-400); RDW Standard Deviation 42.9 fL (36.4-46.3); Red Blood Count 4.43 M/uL (4.20-5.40); White Blood Count 10.34 K/ul (4.8-10.8)
[2025-08-07 13:41] LABS: Alanine Aminotransferase 36 U/L (7-52); Albumin Globulin Ratio 1.2 (0.9-2); Albumin Level 3.4 gm/dl (3.4-5.0); Alkaline Phosphatase 97 U/L (34-104); Anion Gap 8 (3-11); Bilirubin,Total 0.4 mg/dl (0.2-1.0); Blood Urea Nitrogen 6 mg/dl (6-23); Calcium 8.9 mg/dl (8.6-10.3); Carbon Dioxide 22 mmol/L (21-32); Chloride 106 mmol/L (98-107); Globulin 2.8 gm/dl (2.5-4.0); Glucose 88 mg/dl (70-99(Fasting)); Potassium 3.8 mmol/L (3.5-5.1); Sodium 136 mmol/L (136-145); Total Protein 6.2 gm/dl (6.0-8.3)
[2025-08-07 14:21] LABS: Protein Creatinine Ratio Urine 0.1 (0-0.2); Total Protein Urine Random 11.3 mg/dl (0-11.9)
--- NOTE | 2025-08-07 14:40 | History & Physical Report ---
Date of Service August 07, 2025 Assessment & Plan (1) 36 weeks gestation of : (2) Insulin controlled gestational diabetes mellitus (GDM) during : (3) Gestational hypertension: Plan Patient without sx except for swelling. Labs good. FHTs categ 1. Bps were mild range but then last had SBP 160. Will need to monitor further. If severe features regarding more serial bps will need change plan. History of Present Illness Chief Complaint: elevated bps in office. Primary Care Provider: Peggy Mathias DO 29yo at 36+wks ega presents to LD from office with elevated bps. She was seen for her routine visit and sbps >140x 2. Denies christensen or visual change. No ruq or epig pain. Swelling has been significantly worse over past week, top of feet are tight. Notes +fm, no rom/vb. No ctx. PNC c/b 1. history of gest htn in prior pregnancies 2. obesity 3. GDM on insulin PNL rh pos, ri, gbs unknown OBH: x 4, sab x 1 GYNH: nl paps, no stds Allergies Allergy/AdvReac Type Severity Reaction Status Date / Time coconut Allergy Severe Anaphylaxis Verified 08/07/25 13:23 codeine AdvReac Intermediate vomiting Verified 08/07/25 13:23 oxycodone AdvReac Intermediate vomiting Verified 08/07/25 10:57 hydrocodone AdvReac Vomiting Verified 08/07/25 10:57 Home Medications Medication Instructions Recorded Confirmed Type doxylamine succinate 25 mg tablet 25 mg PO HS PRN Sleep 11/06/24 08/07/25 History (Unisom (doxylamine)) pyridoxine (vitamin B6) 25 mg 25 mg PO DAILY 02/10/25 08/07/25 History tablet aspirin [Baby Aspirin] 81 mg PO DAILY 03/20/25 08/07/25 History ondansetron 4 mg disintegrating 4 mg PO Q6H PRN nausea and 06/12/25 08/07/25 Rx tablet vomiting #20 tabs acetone (urine) test (Ketone Urine #50 ea 07/09/25 08/07/25 Rx Test strips) blood sugar diagnostic (True #150 ea 07/09/25 08/07/25 Rx Metrix Glucose Test Strip) blood-glucose meter (True Metrix #1 ea 07/09/25 08/07/25 Rx Glucose Meter) lancets 33 gauge (TRUEplus Lancets) #150 ea 07/09/25 08/07/25 Rx bupropion HCl 150 mg 24 hr tablet, 150 mg PO QAM 07/10/25 08/07/25 History extended release (Wellbutrin XL) breast pump #1 ea 07/24/25 08/07/25 Rx pen needle, diabetic 32 gauge x #100 ea 07/24/25 08/07/25 Rx 5/32" insulin NPH isoph U-100 human 100 15 unit subcut QPM 08/07/25 08/07/25 History unit/mL (3 mL) subcutaneous pen (Novolin N FlexPen) Patient History Medical History (Updated 08/07/25 @ 14:37 by Nidhi Kaplan MD, FACOG) Retained products of conception after miscarriage Blighted ovum History of shingles recently finished valtrex>no open sores "all healed over" Anemia PTSD (post-traumatic stress disorder) Anxiety and depression no meds Migraine History of hypertension Thyroid nodule Surgical History H/O dilation and curettage History of postoperative nausea and vomiting S/P tonsillectomy and adenoidectomy History of appendectomy H/O wisdom tooth extraction Family History Grandmother (Maternal) Diabetes Breast cancer great grandmother Hypertension Grandfather (Paternal) Pancreatic cancer Diabetes Hypertension Other No family history of adverse response to anesthesia No pertinent family history Denies family history of Myocardial infarction Stroke Social History (Updated 08/07/25 @ 13:22 by Bella Neves RN) Smoking Status: Former smoker Tobacco Type: Cigarettes Second Hand Exposure: No; Do You Dip or Chew Tobacco: No; Hx Alcohol Use: No Hx Substance Use: No Preferred Language: Salvadorean Communication Ability: Effective Communication Ability Comment: contacts currently in Visual Impairment: No Limitations Otolaryngology Surgeon Required: No Beliefs That Will Affect Care: None marital status: Single marital status details: Ramses (26) [phone] Current Living Situation: Significant Other Current Living Situation Comment: Lives with Ramses and kids current occupational status: employed 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 Feels Safe at Home: Yes Diet Comment: Diabetic for GDM Assistive Devices: None Review of Systems as per Subjective / HPI Physical Exam Constitutional: WD/WN, vitals as above Respiratory: normal respiratory effort, lungs clear to auscultation Cardiovascular: Rate/Rhythm: regular rate and regular rhythm Gastrointestinal (Abdomen): soft gravid nt efw 7-8# Musculoskeletal: +2 edema nontender calves Neurologic: grossly normal DTRs patellar +2-+3 no clonus Psychiatric: A+Ox3, euthymic affect Genitourinary: OB Exam Monitor Tracing: + external FHT monitor used, + external uterine monitor used, + category I (nst reactive) and + normal FHT variability Results & Data Vital Signs (Past 12 Hours) Vital Signs Pulse Resp BP 08/07/25 14:17 106 H 160/93 H 08/07/25 13:39 102 H 142/94 H 08/07/25 13:25 18 08/07/25 12:57 103 H 139/100 Coding Level of Care Code None Diagnoses 36 weeks gestation of Z3A.36 Insulin controlled gestational diabetes mellitus (GDM) during O24.414 Gestational hypertension O13.9
[2025-08-07] MEDS ORDERED: LIDOCAINE 1% LOCAL 20 ML VIAL INFIL PRN (14:45)
--- NOTE | 2025-08-07 15:20 | Labor Progress Brief Note ---
Date of Service August 07, 2025 Subjective no symptoms sbp >160 x 2 Assessment & Plan (1) 36 weeks gestation of : (2) Gestational hypertension: (3) Obesity affecting : (4) Insulin controlled gestational diabetes mellitus (GDM) during : Plan given now severe bps in this ega, rec delivery. admit, iv, betamethasone q24hr x 2. start pcn, pitocin. arom when appropriate. will see if next bp in range to trt and then will do so. if begin to trt bps will need to consider mag seizure prophylaxis. Admission and Anticipated Discharge Date Admission Date: August 07, 2025 Physical Exam Constitutional: WD/WN, vitals as above Genitourinary: Manual OB Exam: + cervical dilation (2), + cervical effacement 50% and + station high OB Exam Monitor Tracing: + external FHT monitor used, + external uterine monitor used (q2-3 feeling pain with ctx. ), + category I (reactive nst) and + normal FHT variability Results & Data Vital Signs (Past 12 Hours) Vital Signs Pulse Resp BP 08/07/25 15:03 115 H 164/93 H 08/07/25 14:40 111 H 170/104 H 08/07/25 14:17 106 H 160/93 H 08/07/25 13:39 102 H 142/94 H 08/07/25 13:25 18 08/07/25 12:57 103 H 139/100 Coding Level of Care Code None Diagnoses 36 weeks gestation of Z3A.36 Gestational hypertension O13.9 Obesity affecting O99.210 Insulin controlled gestational diabetes mellitus (GDM) during O24.414
[2025-08-07] MEDS: LACTATED RINGER'S 1,000 ML IV PRN (15:27)
[2025-08-07] MEDS: PENICILLIN GK 6 MU in DEXTROSE 5% 250 ML IV STA (15:29)
[2025-08-07] MEDS: SODIUM CHLORIDE 0.9% PF INJ 10 ML VIAL ONE (15:33)
[2025-08-07] MEDS: BUPIVACAINE 0.25% PF 30 ML VIAL ONE (15:33)
[2025-08-07] MEDS: LIDOCAINE 2%/EPINEPHRINE 1:200,000 20 ML PF ONE (15:33)
[2025-08-07] MEDS: fentANYL 2 MCG/ML BUPIVacaine 0.125%-NSS 100ML BAG ONE (15:33)
[2025-08-07] MEDS: BETAMETH SOD PHOS/ACETATE IA 6 MG/ML IM STA (15:33)
[2025-08-07] MEDS ORDERED: SODIUM CHLORIDE 0.9% 100 ML IV PRN (15:47)
[2025-08-07] MEDS: MAGNESIUM SULFATE / WTR 40 GM/1,000 ML BAG IV SCH (18:17)
[2025-08-07] MEDS: OXYTOCIN 30 UNITS/NSS 30 UNITS/500 ML BAG IV PRN (18:20)
[2025-08-07] MEDS: MAG SULFATE 4GM BOLUS FROM BAG IV ONE (18:31)
[2025-08-07] MEDS: PENICILLIN GK 3 MU in DEXTROSE 5% 100 ML IV PRN (19:19)
[2025-08-07] MEDS: CALCIUM CARBONATE 500 MG CHEWABLE TAB PO PRN (19:59)
[2025-08-07] MEDS: LABETALOL HCL IV 5 MG/ML 20ML IV STA (22:41)
[2025-08-07] MEDS ORDERED: diphenhydrAMINE 50 MG/ML VIAL IV PRN (23:19)
[2025-08-07] MEDS ORDERED: NALBUPHINE HCL INJ 10 MG/ML AMP IV PRN (23:19)
[2025-08-07] MEDS ORDERED: NALOXONE HCL 0.4 MG/1 ML VIAL/CARP IV PRN (23:19)
[2025-08-07] MEDS ORDERED: LIDOCAINE 2% MPF LOCAL 5 ML VIAL EPI PRN (23:19)
[2025-08-07] MEDS ORDERED: BUPIVACAINE 0.25% PF 30 ML VIAL EPI PRN (23:19)
[2025-08-07] MEDS ORDERED: SODIUM CHLORIDE 0.9% PF INJ 10 ML VIAL EPI PRN (23:19)
[2025-08-07] MEDS ORDERED: ROPIVACAINE 0.5% PF 5 MG/ML 20 ML VIAL EPI PRN (23:19)
[2025-08-07] MEDS ORDERED: NALOXONE HCL 1 MG in SODIUM CHLORIDE 0.9% 1,000 ML IV PRN (23:19)
--- NOTE | 2025-08-07 23:21 | Anesthesiology Consultation ---
Date of Service August 07, 2025 Assessment & Plan (1) Encounter for pre-operative examination: Chart Review Chart Review: Patient NOT seen in Pre Admission Testing and Acceptable Risk for Labor Epidural Consults Requested none History Height/Weight Height: 5 ft 9 in Weight: 130.635 kg Allergies Allergy/AdvReac Type Severity Reaction Status Date / Time coconut Allergy Severe Anaphylaxis Verified 08/07/25 13:23 codeine AdvReac Intermediate vomiting Verified 08/07/25 13:23 oxycodone AdvReac Intermediate vomiting Verified 08/07/25 10:57 hydrocodone AdvReac Vomiting Verified 08/07/25 10:57 Medications Home Medications Medication Instructions Recorded Confirmed Last Taken doxylamine succinate 25 mg tablet 25 mg PO HS PRN Sleep 11/06/24 08/07/25 08/06/25 (Unisom (doxylamine)) pyridoxine (vitamin B6) 25 mg 25 mg PO DAILY 02/10/25 08/07/25 08/06/25 tablet aspirin [Baby Aspirin] 81 mg PO DAILY 03/20/25 08/07/25 08/06/25 ondansetron 4 mg disintegrating 4 mg PO Q6H PRN nausea and 06/12/25 08/07/25 Unknown tablet vomiting #20 tabs acetone (urine) test (Ketone Urine #50 ea 07/09/25 08/07/25 Unknown Test strips) blood sugar diagnostic (True #150 ea 07/09/25 08/07/25 Unknown Metrix Glucose Test Strip) blood-glucose meter (True Metrix #1 ea 07/09/25 08/07/25 Unknown Glucose Meter) lancets 33 gauge (TRUEplus Lancets) #150 ea 07/09/25 08/07/25 Unknown bupropion HCl 150 mg 24 hr tablet, 150 mg PO QAM 07/10/25 08/07/25 08/06/25 extended release (Wellbutrin XL) breast pump #1 ea 07/24/25 08/07/25 Unknown pen needle, diabetic 32 gauge x #100 ea 07/24/25 08/07/25 Unknown " insulin NPH isoph U-100 human 100 15 unit subcut QPM 08/07/25 08/07/25 08/06/25 unit/mL (3 mL) subcutaneous pen (Novolin N FlexPen) Active Medications Generic Name Dose Route Start Last Admin Trade Name Freq PRN Reason Stop Dose Admin Calcium Carbonate 500 mg 08/07/25 12:59 08/07/25 19:59 Calcium Carbonate 500 Mg Chewable Tab PO 09/06/25 12:58 500 mg Q6H PRN Administration Indigestion Lactated Ringer's 1,000 mls @ 125 mls/hr 08/07/25 14:45 08/07/25 23:12 Lr IV 08/09/25 14:44 999 mls/hr .Q8H PRN Administration L&D Protocol Protocol Penicillin G Potassium 3 mu/ 106 mls @ 100 mls/hr 08/07/25 17:45 08/07/25 23:24 Dextrose IV 08/17/25 17:44 100 mls/hr Q4H PRN Administration GBS(+) Until Delivery Magnesium Sulfate 40 gm in 1,000 mls @ 50 mls/hr 08/07/25 17:45 08/07/25 19:02 Magnesium Sulfate / Wtr IV 09/06/25 17:44 50 mls/hr .Q20H JULISSA Infusion Oxytocin 30 units in 500 mls @ 11 mls/hr 08/07/25 17:42 08/07/25 22:15 Pitocin 30 Units/Nss IV 08/09/25 17:41 0.66 units/hr .Q24H PRN 11 mls/hr Labor Induction/Augmentation Titration Protocol 0.66 UNITS/HR Past Medical History Medical History Retained products of conception after miscarriage Blighted ovum History of shingles recently finished valtrex>no open sores "all healed over" Anemia PTSD (post-traumatic stress disorder) Anxiety and depression no meds Migraine History of hypertension Thyroid nodule Exercise / Class Metabolic Activity II 4-5 Yardwork/Stairs/Walk up hill Past Family History Family History Grandmother (Maternal) Diabetes Breast cancer great grandmother Hypertension Grandfather (Paternal) Pancreatic cancer Diabetes Hypertension Other No family history of adverse response to anesthesia No pertinent family history Denies family history of Myocardial infarction Stroke Past Surgical History Surgical History H/O dilation and curettage History of postoperative nausea and vomiting S/P tonsillectomy and adenoidectomy History of appendectomy H/O wisdom tooth extraction Social History Smoking Status: Former smoker tobacco type: cigarettes Do You Dip or Chew Tobacco: No Smoking End Date: 05/20/2017 Hx Alcohol Use: No Hx Substance Use: No substance use type: does not use Physical Exam Vital Signs Last Vital Signs Temp 36.9 C 08/07/25 21:00 Pulse 123 H 08/07/25 23:52 Resp 18 08/07/25 23:10 BP 123/75 08/07/25 23:52 Pulse Ox 98 08/07/25 23:50 O2 Del Method Room Air 08/07/25 23:19 Testing Laboratory Results 08/07/25 13:05 08/07/25 13:05 Blood Type A Positive 08/07/25 13:05 Antibody Screen NEGATIVE 08/07/25 13:05 08/07/25 15:18 POC Glucose 77
[2025-08-07] MEDS: SODIUM CHLORIDE 0.9% PF INJ 10 ML VIAL EPI STA (23:45)
[2025-08-07] MEDS: BUPIVACAINE 0.25% PF 30 ML VIAL EPI STA (23:45)
[2025-08-07] MEDS: LIDOCAINE 2%/EPINEPHRINE 1:200,000 20 ML PF EPI STA (23:45)
[2025-08-08] MEDS: ONDANSETRON INJ 2 MG/ML 2 ML VIAL IV PRN (00:01)
[2025-08-08] MEDS: BUPIVACAINE 0.25% PF 30 ML VIAL ONE (00:02)
[2025-08-08] MEDS: LIDOCAINE 2%/EPINEPHRINE 1:200,000 20 ML PF ONE (00:02)
[2025-08-08] MEDS: fentANYL 2 MCG/ML BUPIVacaine 0.125%-NSS 100ML BAG ONE (00:06)
[2025-08-08] MEDS: SODIUM CHLORIDE 0.9% PF INJ 10 ML VIAL ONE (00:21)
[2025-08-08 00:47] LABS: Hematocrit (blood only) 35.6 % (37.0-47.0); Hemoglobin 12.4 g/dL (12.0-16.0); Mean Corpuscular Hemoglobin 27.1 pg (25.0-34.0); Mean Corpuscular Volume 77.7 fL (80.0-100.0); Platelet Count 227 K/uL (130-400); RDW Standard Deviation 43.2 fL (36.4-46.3); Red Blood Count 4.58 M/uL (4.20-5.40); White Blood Count 10.76 K/ul (4.8-10.8)
[2025-08-08 01:04] LABS: Alanine Aminotransferase 42.0 U/L (7-52); Albumin Globulin Ratio 1.1 (0.9-2); Albumin Level 3.4 gm/dl (3.4-5.0); Alkaline Phosphatase 107.0 U/L (34-104); Anion Gap 11.0 (3-11); Bilirubin,Total 0.5 mg/dl (0.2-1.0); Blood Urea Nitrogen 6.0 mg/dl (6-23); Calcium 8.8 mg/dl (8.6-10.3); Carbon Dioxide 19.0 mmol/L (21-32); Chloride 104.0 mmol/L (98-107); Creatinine Clr Calc Pharmacy 175.6 ml/min; Globulin 3.0 gm/dl (2.5-4.0); Glucose 132.0 mg/dl (70-99(Fasting)); Magnesium Therapeutic L&D Only 3.6 mg/dL (4.0-8.0); Potassium 4.0 mmol/L (3.5-5.1); Sodium 134.0 mmol/L (136-145); Total Protein 6.4 gm/dl (6.0-8.3)
--- NOTE | 2025-08-08 02:11 | Labor Progress Brief Note ---
Date of Service August 08, 2025 Subjective Comfortable with epidural. FHT Cat 1 [place] Q 204 SVE 4/80/-2 AROM clear fluid. Assessment & Plan Admission and Anticipated Discharge Date Admission Date: August 07, 2025 Results & Data Vital Signs (Past 12 Hours) Vital Signs Temp Pulse Resp BP Pulse Ox Pulse Ox O2 Del Method 08/08/25 02:05 111 H 96 08/08/25 02:00 108 H 98 08/08/25 01:57 106 H 138/89 08/08/25 01:55 105 H 97 08/08/25 01:50 107 H 97 08/08/25 01:45 105 H 98 08/08/25 01:42 106 H 142/91 H 08/08/25 01:40 111 H 96 08/08/25 01:35 106 H 98 08/08/25 01:30 105 H 96 08/08/25 01:27 100 H 145/87 H 08/08/25 01:25 20 08/08/25 01:25 20 08/08/25 01:25 36.8 C 104 H 20 97 08/08/25 01:20 106 H 98 08/08/25 01:15 105 H 97 08/08/25 01:12 102 H 144/83 H 08/08/25 01:10 106 H 98 08/08/25 01:05 108 H 98 08/08/25 01:00 105 H 97 08/08/25 00:57 108 H 141/85 H 08/08/25 00:55 103 H 98 08/08/25 00:50 104 H 97 08/08/25 00:45 103 H 98 08/08/25 00:43 103 H 139/87 08/08/25 00:40 100 H 98 08/08/25 00:35 104 H 97 08/08/25 00:30 101 H 98 08/08/25 00:28 102 H 153/95 H 08/08/25 00:25 102 H 96 08/08/25 00:20 106 H 97 08/08/25 00:15 109 H 96 08/08/25 00:11 105 H 143/80 H 08/08/25 00:10 108 H 97 08/08/25 00:09 103 H 146/85 H 08/08/25 00:07 108 H 144/82 H 08/08/25 00:05 106 H 138/68 97 08/08/25 00:03 109 H 150/78 H 08/08/25 00:01 114 H 156/90 H 08/08/25 00:00 102 H 147/99 H 97 08/07/25 23:57 79 111/59 L 08/07/25 23:55 100 H 111/55 L 98 08/07/25 23:53 95 H 118/56 L 08/07/25 23:52 123 H 123/75 08/07/25 23:50 126 H 98 08/07/25 23:49 116 H 154/98 H 08/07/25 23:47 114 H 153/108 H 08/07/25 23:45 114 H 99 08/07/25 23:40 115 H 97 08/07/25 23:36 113 H 183/104 H 08/07/25 23:35 118 H 98 08/07/25 23:31 110 H 156/93 H 08/07/25 23:30 111 H 98 08/07/25 23:26 108 H 156/95 H 08/07/25 23:25 110 H 97 08/07/25 23:21 106 H 154/94 H 08/07/25 23:20 106 H 98 08/07/25 23:19 98 08/07/25 23:16 109 H 153/94 H 08/07/25 23:15 107 H 98 08/07/25 23:11 106 H 156/94 H 08/07/25 23:11 103 H 159/95 H 08/07/25 23:10 18 08/07/25 23:10 108 H 98 08/07/25 23:06 106 H 156/94 H 08/07/25 23:05 106 H 98 08/07/25 23:01 107 H 158/94 H 08/07/25 23:00 109 H 20 97 08/07/25 22:56 106 H 155/91 H 08/07/25 22:55 108 H 98 08/07/25 22:51 107 H 150/91 H 08/07/25 22:50 108 H 96 08/07/25 22:46 109 H 149/91 H 08/07/25 22:45 111 H 96 08/07/25 22:41 118 H 173/110 H 08/07/25 22:40 118 H 97 08/07/25 22:38 117 H 173/110 H 08/07/25 22:35 118 H 97 08/07/25 22:30 121 H 98 08/07/25 22:25 123 H 171/94 H 97 08/07/25 22:24 126 H 160/109 H 08/07/25 22:22 121 H 158/100 H 08/07/25 22:20 119 H 97 08/07/25 22:15 119 H 97 08/07/25 22:10 123 H 97 08/07/25 22:07 123 H 154/87 H 08/07/25 22:05 124 H 97 08/07/25 22:00 118 H 98 08/07/25 21:55 120 H 151/97 H 97 08/07/25 21:53 116 H 161/124 H 08/07/25 21:50 118 H 98 08/07/25 21:45 119 H 99 08/07/25 21:40 119 H 99 08/07/25 21:37 116 H 137/73 08/07/25 21:35 116 H 98 08/07/25 21:30 117 H 99 08/07/25 21:25 120 H 98 08/07/25 21:22 113 H 153/88 H 08/07/25 21:20 117 H 98 08/07/25 21:15 115 H 97 08/07/25 21:10 18 08/07/25 21:10 118 H 97 08/07/25 21:07 116 H 139/89 08/07/25 21:05 114 H 98 08/07/25 21:00 36.9 C 119 H 18 98 08/07/25 20:55 113 H 98 08/07/25 20:52 121 H 133/84 08/07/25 20:50 123 H 98 08/07/25 20:45 125 H 98 08/07/25 20:40 120 H 99 08/07/25 20:37 121 H 127/70 08/07/25 20:35 119 H 98 08/07/25 20:30 122 H 98 08/07/25 20:25 121 H 98 08/07/25 20:22 121 H 123/67 08/07/25 20:20 124 H 99 08/07/25 20:15 124 H 98 08/07/25 20:10 119 H 98 08/07/25 20:07 120 H 133/77 08/07/25 20:05 122 H 99 08/07/25 20:00 122 H 98 08/07/25 19:55 122 H 98 08/07/25 19:52 125 H 137/82 08/07/25 19:50 123 H 98 08/07/25 19:45 122 H 98 08/07/25 19:40 119 H 98 08/07/25 19:37 113 H 138/85 08/07/25 19:35 115 H 99 08/07/25 19:30 36.5 C 18 08/07/25 19:30 36.5 C 119 H 18 98 08/07/25 19:25 117 H 97 08/07/25 19:22 111 H 143/90 H 08/07/25 19:20 121 H 98 08/07/25 19:15 Room Air 08/07/25 19:15 18 08/07/25 19:15 116 H 97 08/07/25 19:10 130 H 99 08/07/25 19:08 115 H 141/71 H 08/07/25 19:05 130 H 99 08/07/25 19:00 127 H 98 08/07/25 18:55 127 H 99 08/07/25 18:52 123 H 137/72 08/07/25 18:50 128 H 98 08/07/25 18:45 126 H 97 08/07/25 18:40 127 H 99 08/07/25 18:37 125 H 128/64 08/07/25 18:35 125 H 99 08/07/25 18:30 126 H 98 08/07/25 18:25 133 H 99 08/07/25 18:20 135 H 100 08/07/25 18:15 20 08/07/25 18:15 134 H 99 08/07/25 18:10 128 H 100 08/07/25 18:05 127 H 99 08/07/25 18:00 126 H 100 08/07/25 17:59 137 H 130/72 08/07/25 17:55 126 H 100 08/07/25 17:50 123 H 99 08/07/25 17:45 123 H 100 08/07/25 17:40 118 H 100 08/07/25 17:35 117 H 100 08/07/25 17:30 116 H 99 08/07/25 17:29 120 H 133/84 08/07/25 17:25 116 H 100 08/07/25 17:20 124 H 100 08/07/25 17:15 111 H 100 08/07/25 17:10 115 H 100 08/07/25 17:05 109 H 99 08/07/25 17:00 107 H 100 08/07/25 16:55 109 H 100 08/07/25 16:50 110 H 160/95 H 100 08/07/25 16:45 119 H 100 08/07/25 16:40 109 H 99 08/07/25 16:35 108 H 100 08/07/25 16:30 186 H 100 08/07/25 16:29 110 H 143/98 H 08/07/25 16:23 109 H 165/105 H 08/07/25 16:22 122 H 183/120 H 08/07/25 15:52 108 H 145/101 H 08/07/25 15:18 110 H 159/87 H 08/07/25 15:03 36.8 C 115 H 18 164/93 H 08/07/25 14:40 111 H 170/104 H 08/07/25 14:17 106 H 160/93 H O2 Del Method 08/08/25 02:05 08/08/25 02:00 08/08/25 01:57 08/08/25 01:55 08/08/25 01:50 08/08/25 01:45 08/08/25 01:42 08/08/25 01:40 08/08/25 01:35 08/08/25 01:30 08/08/25 01:27 08/08/25 01:25 08/08/25 01:25 08/08/25 01:25 08/08/25 01:20 08/08/25 01:15 08/08/25 01:12 08/08/25 01:10 08/08/25 01:05 08/08/25 01:00 08/08/25 00:57 08/08/25 00:55 08/08/25 00:50 08/08/25 00:45 08/08/25 00:43 08/08/25 00:40 08/08/25 00:35 08/08/25 00:30 08/08/25 00:28 08/08/25 00:25 08/08/25 00:20 08/08/25 00:15 08/08/25 00:11 08/08/25 00:10 08/08/25 00:09 08/08/25 00:07 08/08/25 00:05 08/08/25 00:03 08/08/25 00:01 08/08/25 00:00 08/07/25 23:57 08/07/25 23:55 08/07/25 23:53 08/07/25 23:52 08/07/25 23:50 08/07/25 23:49 08/07/25 23:47 08/07/25 23:45 08/07/25 23:40 08/07/25 23:36 08/07/25 23:35 08/07/25 23:31 08/07/25 23:30 08/07/25 23:26 08/07/25 23:25 08/07/25 23:21 08/07/25 23:20 08/07/25 23:19 Room Air 08/07/25 23:16 08/07/25 23:15 08/07/25 23:11 08/07/25 23:11 08/07/25 23:10 08/07/25 23:10 08/07/25 23:06 08/07/25 23:05 08/07/25 23:01 08/07/25 23:00 08/07/25 22:56 08/07/25 22:55 08/07/25 22:51 08/07/25 22:50 08/07/25 22:46 08/07/25 22:45 08/07/25 22:41 08/07/25 22:40 08/07/25 22:38 08/07/25 22:35 08/07/25 22:30 08/07/25 22:25 08/07/25 22:24 08/07/25 22:22 08/07/25 22:20 08/07/25 22:15 08/07/25 22:10 08/07/25 22:07 08/07/25 22:05 08/07/25 22:00 08/07/25 21:55 08/07/25 21:53 08/07/25 21:50 08/07/25 21:45 08/07/25 21:40 08/07/25 21:37 08/07/25 21:35 08/07/25 21:30 08/07/25 21:25 08/07/25 21:22 08/07/25 21:20 08/07/25 21:15 08/07/25 21:10 08/07/25 21:10 08/07/25 21:07 08/07/25 21:05 08/07/25 21:00 08/07/25 20:55 08/07/25 20:52 08/07/25 20:50 08/07/25 20:45 08/07/25 20:40 08/07/25 20:37 08/07/25 20:35 08/07/25 20:30 08/07/25 20:25 08/07/25 20:22 08/07/25 20:20 08/07/25 20:15 08/07/25 20:10 08/07/25 20:07 08/07/25 20:05 08/07/25 20:00 08/07/25 19:55 08/07/25 19:52 08/07/25 19:50 08/07/25 19:45 08/07/25 19:40 08/07/25 19:37 08/07/25 19:35 08/07/25 19:30 08/07/25 19:30 08/07/25 19:25 08/07/25 19:22 08/07/25 19:20 08/07/25 19:15 08/07/25 19:15 08/07/25 19:15 08/07/25 19:10 08/07/25 19:08 08/07/25 19:05 08/07/25 19:00 08/07/25 18:55 08/07/25 18:52 08/07/25 18:50 08/07/25 18:45 08/07/25 18:40 08/07/25 18:37 08/07/25 18:35 08/07/25 18:30 08/07/25 18:25 08/07/25 18:20 08/07/25 18:15 08/07/25 18:15 08/07/25 18:10 08/07/25 18:05 08/07/25 18:00 08/07/25 17:59 08/07/25 17:55 08/07/25 17:50 08/07/25 17:45 08/07/25 17:40 08/07/25 17:35 08/07/25 17:30 08/07/25 17:29 08/07/25 17:25 08/07/25 17:20 08/07/25 17:15 08/07/25 17:10 08/07/25 17:05 08/07/25 17:00 08/07/25 16:55 08/07/25 16:50 08/07/25 16:45 08/07/25 16:40 08/07/25 16:35 08/07/25 16:30 08/07/25 16:29 08/07/25 16:23 08/07/25 16:22 08/07/25 15:52 08/07/25 15:18 08/07/25 15:03 08/07/25 14:40 08/07/25 14:17 Coding Level of Care Code None
[2025-08-08] MEDS: LABETALOL HCL IV 5 MG/ML 20ML IV STA (02:52)
--- NOTE | 2025-08-08 07:30 | Labor Progress Brief Note ---
Date of Service August 08, 2025 Subjective FHT Cat 1 [place] Q2-4 SVE 7/90/0 IUPC placed d/t unable trace ctx. Assessment & Plan Admission and Anticipated Discharge Date Admission Date: August 07, 2025 Results & Data Vital Signs (Past 12 Hours) Vital Signs Temp Pulse Resp BP Pulse Ox Pulse Ox O2 Del Method 08/08/25 07:25 106 H 99 08/08/25 07:20 112 H 97 08/08/25 07:19 113 H 145/91 H 08/08/25 07:15 113 H 99 08/08/25 07:10 113 H 100 08/08/25 07:05 114 H 100 08/08/25 07:04 111 H 124/60 08/08/25 07:00 110 H 98 08/08/25 06:55 110 H 99 08/08/25 06:50 105 H 97 08/08/25 06:49 108 H 129/61 08/08/25 06:45 106 H 98 08/08/25 06:40 106 H 98 08/08/25 06:35 106 H 98 08/08/25 06:34 109 H 128/65 08/08/25 06:30 107 H 97 08/08/25 06:25 108 H 98 08/08/25 06:20 108 H 98 08/08/25 06:19 111 H 124/66 08/08/25 06:15 18 08/08/25 06:15 36.8 C 115 H 18 99 08/08/25 06:10 110 H 100 08/08/25 06:05 106 H 97 08/08/25 06:04 108 H 119/57 L 08/08/25 06:00 105 H 97 08/08/25 05:55 105 H 97 08/08/25 05:50 108 H 98 08/08/25 05:49 108 H 119/59 L 08/08/25 05:45 108 H 98 08/08/25 05:40 104 H 97 08/08/25 05:35 106 H 97 08/08/25 05:34 109 H 119/56 L 08/08/25 05:30 106 H 18 97 08/08/25 05:25 108 H 99 08/08/25 05:20 106 H 98 08/08/25 05:19 105 H 120/58 L 08/08/25 05:15 105 H 98 12/20/25 05:10 108 H 99 08/08/25 05:05 107 H 99 08/08/25 05:04 104 H 120/61 08/08/25 05:00 109 H 18 98 08/08/25 04:55 108 H 99 08/08/25 04:50 98 08/08/25 04:50 111 H 08/08/25 04:50 116 H 134/83 08/08/25 04:45 110 H 98 08/08/25 04:40 105 H 98 08/08/25 04:35 104 H 96 08/08/25 04:34 106 H 129/70 08/08/25 04:30 107 H 97 08/08/25 04:25 107 H 98 08/08/25 04:20 108 H 97 08/08/25 04:19 102 H 127/70 08/08/25 04:15 102 H 97 08/08/25 04:10 104 H 97 08/08/25 04:05 101 H 97 08/08/25 04:04 101 H 127/75 08/08/25 04:00 105 H 18 98 08/08/25 03:55 113 H 98 08/08/25 03:50 105 H 99 08/08/25 03:49 108 H 128/78 08/08/25 03:45 108 H 98 08/08/25 03:40 107 H 97 08/08/25 03:35 109 H 99 08/08/25 03:34 115 H 135/73 08/08/25 03:30 112 H 98 08/08/25 03:25 106 H 98 08/08/25 03:20 106 H 98 08/08/25 03:19 102 H 128/67 08/08/25 03:19 106 H 122/60 08/08/25 03:15 102 H 97 08/08/25 03:10 107 H 97 08/08/25 03:05 20 08/08/25 03:05 36.8 C 109 H 20 99 08/08/25 03:03 102 H 128/67 08/08/25 03:00 105 H 99 08/08/25 02:55 105 H 99 08/08/25 02:52 112 H 165/95 H 08/08/25 02:50 112 H 97 08/08/25 02:45 104 H 165/95 H 97 08/08/25 02:44 110 H 165/106 H 08/08/25 02:40 110 H 98 08/08/25 02:35 104 H 98 08/08/25 02:31 108 H 145/95 H 08/08/25 02:30 108 H 18 97 08/08/25 02:27 107 H 167/111 H 08/08/25 02:25 108 H 99 08/08/25 02:20 117 H 99 08/08/25 02:15 105 H 97 08/08/25 02:12 101 H 143/90 H 08/08/25 02:10 109 H 99 08/08/25 02:05 111 H 96 08/08/25 02:00 108 H 98 08/08/25 01:57 106 H 138/89 08/08/25 01:55 105 H 97 08/08/25 01:50 107 H 97 08/08/25 01:45 105 H 98 08/08/25 01:42 106 H 142/91 H 08/08/25 01:40 111 H 96 08/08/25 01:35 106 H 98 08/08/25 01:30 105 H 96 08/08/25 01:27 100 H 145/87 H 08/08/25 01:25 20 08/08/25 01:25 20 08/08/25 01:25 36.8 C 104 H 20 97 08/08/25 01:20 106 H 98 08/08/25 01:15 105 H 97 08/08/25 01:12 102 H 144/83 H 08/08/25 01:10 106 H 98 08/08/25 01:05 108 H 98 08/08/25 01:00 105 H 97 08/08/25 00:57 108 H 141/85 H 08/08/25 00:55 103 H 98 08/08/25 00:50 104 H 97 08/08/25 00:45 103 H 98 08/08/25 00:43 103 H 139/87 08/08/25 00:40 100 H 98 08/08/25 00:35 104 H 97 08/08/25 00:30 101 H 98 08/08/25 00:28 102 H 153/95 H 08/08/25 00:25 102 H 96 08/08/25 00:20 106 H 97 08/08/25 00:15 109 H 96 08/08/25 00:11 105 H 143/80 H 08/08/25 00:10 108 H 97 08/08/25 00:09 103 H 146/85 H 08/08/25 00:07 108 H 144/82 H 08/08/25 00:05 106 H 138/68 97 08/08/25 00:03 109 H 150/78 H 08/08/25 00:01 114 H 156/90 H 08/08/25 00:00 102 H 147/99 H 97 08/07/25 23:57 79 111/59 L 08/07/25 23:55 100 H 111/55 L 98 08/07/25 23:53 95 H 118/56 L 08/07/25 23:52 123 H 123/75 08/07/25 23:50 126 H 98 08/07/25 23:49 116 H 154/98 H 08/07/25 23:47 114 H 153/108 H 08/07/25 23:45 114 H 99 08/07/25 23:40 115 H 97 08/07/25 23:36 113 H 183/104 H 08/07/25 23:35 118 H 98 08/07/25 23:31 110 H 156/93 H 08/07/25 23:30 111 H 98 08/07/25 23:26 108 H 156/95 H 08/07/25 23:25 110 H 97 08/07/25 23:21 106 H 154/94 H 08/07/25 23:20 106 H 98 08/07/25 23:19 98 Room Air 08/07/25 23:16 109 H 153/94 H 08/07/25 23:15 107 H 98 08/07/25 23:11 106 H 156/94 H 08/07/25 23:11 103 H 159/95 H 08/07/25 23:10 18 08/07/25 23:10 108 H 98 08/07/25 23:06 106 H 156/94 H 08/07/25 23:05 106 H 98 08/07/25 23:01 107 H 158/94 H 08/07/25 23:00 109 H 20 97 08/07/25 22:56 106 H 155/91 H 08/07/25 22:55 108 H 98 08/07/25 22:51 107 H 150/91 H 08/07/25 22:50 108 H 96 08/07/25 22:46 109 H 149/91 H 08/07/25 22:45 111 H 96 08/07/25 22:41 118 H 173/110 H 08/07/25 22:40 118 H 97 08/07/25 22:38 117 H 173/110 H 08/07/25 22:35 118 H 97 08/07/25 22:30 121 H 98 08/07/25 22:25 123 H 171/94 H 97 08/07/25 22:24 126 H 160/109 H 08/07/25 22:22 121 H 158/100 H 08/07/25 22:20 119 H 97 08/07/25 22:15 119 H 97 08/07/25 22:10 123 H 97 08/07/25 22:07 123 H 154/87 H 08/07/25 22:05 124 H 97 08/07/25 22:00 118 H 98 08/07/25 21:55 120 H 151/97 H 97 08/07/25 21:53 116 H 161/124 H 08/07/25 21:50 118 H 98 08/07/25 21:45 119 H 99 08/07/25 21:40 119 H 99 08/07/25 21:37 116 H 137/73 08/07/25 21:35 116 H 98 08/07/25 21:30 117 H 99 08/07/25 21:25 120 H 98 08/07/25 21:22 113 H 153/88 H 08/07/25 21:20 117 H 98 08/07/25 21:15 115 H 97 08/07/25 21:10 18 08/07/25 21:10 118 H 97 08/07/25 21:07 116 H 139/89 08/07/25 21:05 114 H 98 08/07/25 21:00 36.9 C 119 H 18 98 08/07/25 20:55 113 H 98 08/07/25 20:52 121 H 133/84 08/07/25 20:50 123 H 98 08/07/25 20:45 125 H 98 08/07/25 20:40 120 H 99 08/07/25 20:37 121 H 127/70 08/07/25 20:35 119 H 98 08/07/25 20:30 122 H 98 08/07/25 20:25 121 H 98 08/07/25 20:22 121 H 123/67 08/07/25 20:20 124 H 99 08/07/25 20:15 124 H 98 08/07/25 20:10 119 H 98 08/07/25 20:07 120 H 133/77 08/07/25 20:05 122 H 99 08/07/25 20:00 122 H 98 08/07/25 19:55 122 H 98 08/07/25 19:52 125 H 137/82 08/07/25 19:50 123 H 98 08/07/25 19:45 122 H 98 08/07/25 19:40 119 H 98 08/07/25 19:37 113 H 138/85 08/07/25 19:35 115 H 99 08/07/25 19:30 36.5 C 18 08/07/25 19:30 36.5 C 119 H 18 98 Coding Level of Care Code None
[2025-08-08 07:38] LABS: Hematocrit (blood only) 34.9 % (37.0-47.0); Hemoglobin 11.8 g/dL (12.0-16.0); Mean Corpuscular Hemoglobin 26.3 pg (25.0-34.0); Mean Corpuscular Volume 77.9 fL (80.0-100.0); Platelet Count 202 K/uL (130-400); RDW Standard Deviation 43.4 fL (36.4-46.3); Red Blood Count 4.48 M/uL (4.20-5.40); White Blood Count 12.34 K/ul (4.8-10.8)
[2025-08-08] MEDS: FAMOTIDINE 20MG IV PUSH 20 MG/5 ML SYR IV STA (07:47)
[2025-08-08] MEDS: fentANYL 2 MCG/ML BUPIVacaine 0.125%-NSS 100ML BAG EPI PRN (07:55)
[2025-08-08] MEDS ORDERED: NURSING L&D Epidural Breakthrough Pain Update ONE (08:08)
[2025-08-08 08:12] LABS: Alanine Aminotransferase 42.0 U/L (7-52); Albumin Globulin Ratio 1.2 (0.9-2); Albumin Level 3.3 gm/dl (3.4-5.0); Alkaline Phosphatase 95.0 U/L (34-104); Anion Gap 12.0 (3-11); Bilirubin,Total 0.5 mg/dl (0.2-1.0); Blood Urea Nitrogen 5.0 mg/dl (6-23); Calcium 8.4 mg/dl (8.6-10.3); Carbon Dioxide 19.0 mmol/L (21-32); Chloride 105.0 mmol/L (98-107); Creatinine Clr Calc Pharmacy 199.1 ml/min; Globulin 2.7 gm/dl (2.5-4.0); Glucose 110.0 mg/dl (70-99(Fasting)); Magnesium Therapeutic L&D Only 4.3 mg/dL (4.0-8.0); Potassium 4.1 mmol/L (3.5-5.1); Sodium 136.0 mmol/L (136-145); Total Protein 6.0 gm/dl (6.0-8.3)
[2025-08-08] MEDS: miSOPROStol 200 MCG TAB ONE (09:02)
[2025-08-08] MEDS: CARBOPROST TROMETHAMINE 250 MCG/ML AMPUL ONE (09:08)
[2025-08-08] MEDS: TRANEXAMIC ACID / 0.7% NACL 1000MG/100ML BAG IV ONE (09:10)
[2025-08-08] MEDS: OXYTOCIN 30 UNITS/NSS 30 UNITS/500 ML BAG IV PRN (09:15)
--- NOTE | 2025-08-08 09:23 | Delivery Summary ---
Vaginal Delivery Summary Date of Service August 08, 2025 Vaginal Delivery Summary The patient dilated to complete and pushed to deliver a viable female infant Apgars 7 and 8 via over intact perineum. Anterior shoulder delivered with effective maternal expulsive efforts followed rapidly by the remaining shoulder and body. Infant was vigorous at but not immediately crying. Cord clamped at 30 seconds of life and infant to maternal abdomen where the cord was then doubly clamped and cut. Placenta delivered spontaneously and intact, three-vessel cord. Hemostasis not achieved with dilute pitocin and uterine massage. Mora had been removed just prior to 2nd stage which was <10min therefore bladder not considered distended. Rectal cytotec given 1000mcg, followed by hemabate after bp checked and no history of asthma and then TXA. This series of interventions was due to continued streaming of bleeding off and on with evacuation of clot in MACARIO x at least twice. Uterus contracted at fundus with these exams. No evidence of retained products. Hemostasis improving. Cervix and sulci intact. QBL 953 cc. Mother and baby stable in recovery. Given sweeps of uterus x multiple, will plan postop antibiotics x 3 doses. Circumstances and management of pp hemorrhage reviewed with patient. Mora was replaced under sterile conditions as will need to plan pp magnesium x 24hr. Patient aware. [facility] Vaginal Delivery Charge Delivery Type Details:
[2025-08-08] MEDS ORDERED: HYDROCORTISONE ACETATE 25 MG SUPP PR PRN (09:32)
[2025-08-08] MEDS ORDERED: OXYTOCIN 30 UNITS/NSS 30 UNITS/500 ML BAG IV PRN (09:32)
[2025-08-08] MEDS ORDERED: BENZOCAINE 20% SPRY 85 APPLN/85 GM CAN EXT PRN (09:32)
[2025-08-08] MEDS: CARBOPROST TROMETHAMINE 250 MCG/ML AMPUL IM ONE (09:50)
[2025-08-08] MEDS: DIPHTHER/TETAN/PERTUS Vaccine (Tdap, Adol/Adult) 0.5mL IM ONE (09:51)
[2025-08-08] MEDS: TRANEXAMIC ACID / 0.7% NACL 1,000 MG/100 ML BAG IV STA (10:18)
[2025-08-08] MEDS: miSOPROStol 200 MCG TAB PR ONE (10:20)
[2025-08-08] MEDS: IBUPROFEN 600 MG TAB PO PRN (10:49)
[2025-08-08] MEDS: OXYTOCIN 20 UNITS/1002ML LR IV ONE (11:01)
[2025-08-08] MEDS: OXYTOCIN 20 UNITS in LACTATED RINGER'S 1,000 ML IV SCH (11:10)
[2025-08-08] MEDS: ACETAMINOPHEN 325 MG TAB PO PRN (11:35)
--- NOTE | 2025-08-08 11:40 | Anesthesia Procedure Note ---
Date of Service August 08, 2025 Anesthesia Post Epidural Note Vital Signs Vital Signs: Temp Pulse Resp BP Pulse Ox O2 Del Method 36.8 C 113 H 18 140/66 93 Room Air 08/08/25 06:15 08/08/25 11:39 08/08/25 06:15 08/08/25 11:16 08/08/25 11:39 08/07/25 23:19 Pain Intensity Lower Abdomen: Pain Intensity: 0 Notes Mental Status: alert / awake / arousable and participated in evaluation Nausea / Vomiting: adequately controlled Pain: adequately controlled Airway Patency, RR, SpO2: stable & adequate BP & HR: stable & adequate Hydration State: stable & adequate Neuraxial Anesthesia: was administered and sensory block is resolving Anesthetic Complications: no major complications apparent Epidural: Removed without complications and With tip intact
[2025-08-08] MEDS: KETOROLAC 30 MG/ML VIAL IV ONE (13:04)
[2025-08-08] MEDS ORDERED: Nursing to Pharmacy Communication SCH (19:15)
[2025-08-08] MEDS: DOCUSATE SODIUM 100 MG CAP PO SCH (21:14)
[2025-08-09 07:50] LABS: Hematocrit (blood only) 27.8 % (37.0-47.0); Hemoglobin 9.0 g/dL (12.0-16.0); Mean Corpuscular Hemoglobin 26.2 pg (25.0-34.0); Mean Corpuscular Volume 81.0 fL (80.0-100.0); Platelet Count 202 K/uL (130-400); RDW Standard Deviation 46.2 fL (36.4-46.3); Red Blood Count 3.43 M/uL (4.20-5.40); White Blood Count 11.47 K/ul (4.8-10.8)
[2025-08-09] MEDS: PRENATAL VITAMIN 1 TAB PO SCH (08:34)
--- NOTE | 2025-08-09 10:22 | Obstetrical Progress Note ---
Date of Service August 09, 2025 Assessment & Plan (1) Encounter for care and examination after delivery: Plan pt doing well. now s/p 24hr of mag. await spont void. bps good. 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 routine care. Subjective Ambulation: ambulating normally Diet Tolerance:: regular diet Lochia:: Small Feeding Type:: breast feeding baby is good, in room with her now and off O2. feels good. no christensen or visual change. has not voided yet since an out. bps ok and aware of early mgmt if elevates. Constitutional: + as per Subjective / HPI Physical Exam Constitutional WD/WN, vitals as above Respiratory normal respiratory effort, lungs clear to auscultation Cardiovascular Rate/Rhythm: regular rate and regular rhythm Gastrointestinal (Abdomen) Inspection/Auscultation: abdomen normal to inspection Percussion/Palpation: abdomen soft Fundus firm 2cm down Musculoskeletal nt calves +3 edema Neurologic grossly normal Psychiatric A+Ox3, euthymic affect Results & Data Vital Signs (Past 12 Hours) Vital Signs Temp Pulse Pulse Resp BP BP Pulse Ox 08/09/25 09:47 94 H 97 08/09/25 09:42 93 H 98 08/09/25 09:37 105 H 97 08/09/25 09:32 87 98 08/09/25 09:27 86 97 08/09/25 09:22 91 H 97 08/09/25 09:17 93 H 97 08/09/25 09:12 88 96 08/09/25 09:07 94 H 96 08/09/25 09:02 96 H 96 08/09/25 08:57 97 H 97 08/09/25 08:52 97 H 97 08/09/25 08:47 102 H 97 08/09/25 08:42 99 H 97 08/09/25 08:37 95 H 98 08/09/25 08:32 93 H 97 08/09/25 08:27 91 H 98 08/09/25 08:22 89 98 08/09/25 08:17 98 H 98 08/09/25 08:12 104 H 97 08/09/25 08:07 92 H 97 08/09/25 08:02 90 99 08/09/25 08:00 18 08/09/25 07:57 88 98 08/09/25 07:52 92 H 96 08/09/25 07:47 91 H 96 08/09/25 07:42 90 97 08/09/25 07:37 86 97 08/09/25 07:32 88 98 08/09/25 07:27 88 98 08/09/25 07:22 88 98 08/09/25 07:17 89 98 08/09/25 07:12 88 97 08/09/25 07:07 92 H 98 08/09/25 07:04 93 H 131/80 08/09/25 07:02 99.0 F 20 08/09/25 07:02 20 08/09/25 07:02 96 H 96 08/09/25 06:57 92 H 97 08/09/25 06:52 88 97 08/09/25 06:47 87 97 08/09/25 06:43 91 H 93 08/09/25 06:42 92 H 95 08/09/25 06:37 89 95 08/09/25 06:32 88 96 08/09/25 06:27 88 97 08/09/25 06:22 89 96 08/09/25 06:17 88 96 08/09/25 06:12 90 97 08/09/25 06:07 98.2 F 90 18 129/80 97 08/09/25 06:07 90 129/80 97 08/09/25 06:04 102 H 94 08/09/25 06:02 88 96 08/09/25 06:00 18 08/09/25 05:09 97 H 97 08/09/25 05:04 88 97 08/09/25 05:00 18 08/09/25 04:59 99 H 97 08/09/25 04:54 99 H 99 08/09/25 04:49 90 97 08/09/25 04:44 91 H 97 08/09/25 04:39 94 H 96 08/09/25 04:34 92 H 97 08/09/25 04:29 92 H 96 08/09/25 04:24 93 H 96 08/09/25 04:19 93 H 96 08/09/25 04:14 99 H 97 08/09/25 04:09 94 H 96 08/09/25 04:04 103 H 98 08/09/25 04:00 18 08/09/25 03:59 94 H 96 08/09/25 03:54 90 97 08/09/25 03:49 93 H 100 08/09/25 03:44 91 H 97 08/09/25 03:39 99 H 97 08/09/25 03:34 94 H 98 08/09/25 03:29 91 H 98 08/09/25 03:24 89 97 08/09/25 03:19 98 H 97 08/09/25 03:14 101 H 99 08/09/25 03:09 93 H 98 08/09/25 03:04 100 H 98 08/09/25 03:00 18 08/09/25 03:00 98.4 F 98 H 18 124/59 L 98 08/09/25 02:59 108 H 98 08/09/25 02:58 98 H 124/59 L 08/09/25 02:54 108 H 98 08/09/25 02:49 97 H 96 08/09/25 02:44 96 H 96 08/09/25 02:39 96 08/09/25 02:39 95 H 08/09/25 02:39 99 H 92 08/09/25 02:34 95 H 97 08/09/25 02:33 99 H 94 08/09/25 02:29 100 H 96 08/09/25 02:28 105 H 92 08/09/25 02:24 103 H 92 08/09/25 02:22 103 H 92 08/09/25 02:19 95 H 95 08/09/25 02:16 93 H 94 08/09/25 02:14 95 H 95 08/09/25 02:11 95 H 94 08/09/25 02:09 96 H 95 08/09/25 02:04 97 H 95 08/09/25 02:00 18 08/09/25 02:00 96 H 94 08/09/25 01:59 100 H 94 08/09/25 01:54 99 H 94 08/09/25 01:52 96 H 94 08/09/25 01:49 97 H 94 08/09/25 01:44 95 08/09/25 01:44 95 H 08/09/25 01:44 96 H 94 08/09/25 01:39 96 H 95 08/09/25 01:34 96 H 96 08/09/25 01:29 101 H 96 08/09/25 01:25 105 H 94 08/09/25 01:24 104 H 95 08/09/25 01:20 108 H 92 08/09/25 01:19 105 H 97 08/09/25 01:14 100 H 94 08/09/25 01:12 99 H 94 08/09/25 01:09 98 H 94 08/09/25 01:04 98 H 94 08/09/25 01:03 96 H 94 08/09/25 01:00 20 08/09/25 00:59 98 H 94 08/09/25 00:56 98 H 94 08/09/25 00:54 98 H 96 08/09/25 00:50 99 H 94 08/09/25 00:49 100 H 95 08/09/25 00:44 99 H 95 08/09/25 00:39 97 H 95 08/09/25 00:34 97 H 96 08/09/25 00:29 105 H 97 08/09/25 00:24 100 H 97 08/09/25 00:19 98 H 97 08/09/25 00:14 105 H 99 08/09/25 00:09 97 H 97 08/09/25 00:04 102 H 98 08/09/25 00:00 20 08/08/25 23:59 96 H 98 08/08/25 23:54 98 H 98 08/08/25 23:49 99 H 98 08/08/25 23:44 111 H 98 08/08/25 23:39 103 H 98 08/08/25 23:34 106 H 97 08/08/25 23:29 98 H 97 08/08/25 23:24 100 H 97 08/08/25 23:19 98 H 97 08/08/25 23:14 106 H 98 08/08/25 23:09 101 H 98 08/08/25 23:04 108 H 98 08/08/25 23:00 20 08/08/25 23:00 98.2 F 100 H 20 119/58 L 97 08/08/25 22:59 102 H 97 08/08/25 22:54 101 H 96 08/08/25 22:53 100 H 119/58 L 08/08/25 22:49 103 H 97 08/08/25 22:44 99 H 97 O2 Del Method 08/09/25 09:47 08/09/25 09:42 08/09/25 09:37 08/09/25 09:32 08/09/25 09:27 08/09/25 09:22 08/09/25 09:17 08/09/25 09:12 08/09/25 09:07 08/09/25 09:02 08/09/25 08:57 08/09/25 08:52 08/09/25 08:47 08/09/25 08:42 08/09/25 08:37 08/09/25 08:32 08/09/25 08:27 08/09/25 08:22 08/09/25 08:17 08/09/25 08:12 08/09/25 08:07 08/09/25 08:02 08/09/25 08:00 08/09/25 07:57 08/09/25 07:52 08/09/25 07:47 08/09/25 07:42 08/09/25 07:37 08/09/25 07:32 08/09/25 07:27 08/09/25 07:22 08/09/25 07:17 08/09/25 07:12 08/09/25 07:07 08/09/25 07:04 08/09/25 07:02 08/09/25 07:02 08/09/25 07:02 08/09/25 06:57 08/09/25 06:52 08/09/25 06:47 08/09/25 06:43 08/09/25 06:42 08/09/25 06:37 08/09/25 06:32 08/09/25 06:27 08/09/25 06:22 08/09/25 06:17 08/09/25 06:12 08/09/25 06:07 Room Air 08/09/25 06:07 08/09/25 06:04 08/09/25 06:02 08/09/25 06:00 08/09/25 05:09 08/09/25 05:04 08/09/25 05:00 08/09/25 04:59 08/09/25 04:54 08/09/25 04:49 08/09/25 04:44 08/09/25 04:39 08/09/25 04:34 08/09/25 04:29 08/09/25 04:24 08/09/25 04:19 08/09/25 04:14 08/09/25 04:09 08/09/25 04:04 08/09/25 04:00 08/09/25 03:59 08/09/25 03:54 08/09/25 03:49 08/09/25 03:44 08/09/25 03:39 08/09/25 03:34 08/09/25 03:29 08/09/25 03:24 08/09/25 03:19 08/09/25 03:14 08/09/25 03:09 08/09/25 03:04 08/09/25 03:00 08/09/25 03:00 Room Air 08/09/25 02:59 08/09/25 02:58 08/09/25 02:54 08/09/25 02:49 08/09/25 02:44 08/09/25 02:39 08/09/25 02:39 08/09/25 02:39 08/09/25 02:34 08/09/25 02:33 08/09/25 02:29 08/09/25 02:28 08/09/25 02:24 08/09/25 02:22 08/09/25 02:19 08/09/25 02:16 08/09/25 02:14 08/09/25 02:11 08/09/25 02:09 08/09/25 02:04 08/09/25 02:00 08/09/25 02:00 08/09/25 01:59 08/09/25 01:54 08/09/25 01:52 08/09/25 01:49 08/09/25 01:44 08/09/25 01:44 08/09/25 01:44 08/09/25 01:39 08/09/25 01:34 08/09/25 01:29 08/09/25 01:25 08/09/25 01:24 08/09/25 01:20 08/09/25 01:19 08/09/25 01:14 08/09/25 01:12 08/09/25 01:09 08/09/25 01:04 08/09/25 01:03 08/09/25 01:00 08/09/25 00:59 08/09/25 00:56 08/09/25 00:54 08/09/25 00:50 08/09/25 00:49 08/09/25 00:44 08/09/25 00:39 08/09/25 00:34 08/09/25 00:29 08/09/25 00:24 08/09/25 00:19 08/09/25 00:14 08/09/25 00:09 08/09/25 00:04 08/09/25 00:00 08/08/25 23:59 08/08/25 23:54 08/08/25 23:49 08/08/25 23:44 08/08/25 23:39 08/08/25 23:34 08/08/25 23:29 08/08/25 23:24 08/08/25 23:19 08/08/25 23:14 08/08/25 23:09 08/08/25 23:04 08/08/25 23:00 08/08/25 23:00 Room Air 08/08/25 22:59 08/08/25 22:54 08/08/25 22:53 08/08/25 22:49 08/08/25 22:44
[2025-08-09 20:44] VITALS: RESP 16
[2025-08-09 23:42] VITALS: O2SAT 99
--- NOTE | 2025-08-10 07:17 | Obstetrical Progress Note ---
Date of Service August 10, 2025 Assessment & Plan (1) Encounter for care and examination after delivery: (2) Gestational hypertension: (3) Insulin controlled gestational diabetes mellitus (GDM) during : (4) Obesity affecting : (5) Anxiety and depression: Plan 29 yo post- day 2 s/p . Fells well today. Vital signs stable Continue post- care Encourage ambulation and Pain controlled with ibuprofen Hgb stable Discharge home today, follow up with in 6 weeks. Admission and Anticipated Discharge Date Admission Date: August 07, 2025 Supervising Physician Co-Signing Physician Notes Resident Physician Supervision Note: I was present with Dr. Martin during the history and exam. I discussed the case with the resident and agree with the findings and plan as documented in the note. Any exceptions or clarifications are listed here: stable doing well. no concerns with bp. eating, voiding, ambulating without issues. no bleeding issues. . rhpos, ri. abd soft ff 1 down nt, ext +2 edema. no calf pain. ppd #2 s/p , severe gest htn, will plan bp check sun or sunday. instructions reviewed. f/u as well 6wk pp. Documented By: Nidhi Kaplan MD, FACOG Subjective 29 yoF post- day 2 s/p Ambulation: ambulating normally Voiding: no voiding problems Passing Gas:: Yes Diet Tolerance:: regular diet Lochia:: Small Feeding Type: breast feeding Current Pain Level:Slight pain. Resting comfortably this AM in NAD. Denies TEJADA, CP, SOB, N/V/D, LE pain. Review of Systems Review of Systems: As per HPI. Physical Exam Constitutional: WD/WN, vitals as above Respiratory: normal respiratory effort, lungs clear to auscultation Cardiovascular: Rate/Rhythm: regular rate and regular rhythm Gastrointestinal (Abdomen): Inspection/Auscultation: abdomen normal to inspection Percussion/Palpation: abdomen soft Fundus firm 2cm down Musculoskeletal: nt calves +3 edema Neurologic: grossly normal Psychiatric: A+Ox3, euthymic affect Results & Data Vital Signs (Past 12 Hours) Vital Signs Temp Pulse Resp BP Pulse Ox O2 Del Method 08/10/25 05:00 128/78 08/09/25 23:40 37 C 88 16 137/90 99 Room Air 08/09/25 20:00 37 C 88 16 132/84 98 Room Air Resident Activity Tracking Resident Involvement: Resident Care Provided Care Provided: Adult Hospital Medicine
[2025-08-10 08:35] VITALS: BP 133/85; TEMP 98.2
[2025-08-10 08:43] VITALS: PULSE 90
== END 2025-08-10 11:06 | disposition home or self-care (01) | DRG 768 ==
LOC: OPB 12:35 → 4S1 12:37 → 4E2 08-09 10:20